=== PATIENT | male | born 1975 | race Caucasian/White ===

== ENCOUNTER → 2017-02-09 | Outpatient (REF) | payer OTHER, MEDICAID ==
[2017-02-09 18:45] LABS: ALBUMIN 3.9 GM/DL (3.2-5.2); ALBUMIN/GLOBULIN RATIO 1.3 (1.00-1.93); BILIRUBIN,DIRECT 0.1 MG/DL (0.0-0.2); BILIRUBIN,TOTAL 0.4 MG/DL (0.2-1.0); TOTAL PROTEIN 6.9 GM/DL (6.4-8.2)
== END ==
LOC: M SFHCPLAZ 16:20
PROVIDERS: ATTEND Family Medicine
DX: R10.11 Right upper quadrant pain (principal)

== ENCOUNTER 2017-02-19 22:44 | Emergency (ER) | payer OTHER, MEDICAID ==
[~2017-02-19] VITALS: Ht 182.9 cm; Wt 117.0 kg
[2017-02-19] MEDS ORDERED: SIMV10TA2 PO (22:54)
[2017-02-19] MEDS ORDERED: CYCL10TA PO (22:55)
[2017-02-19] MEDS ORDERED: ASPI81TA85 PO (22:55)
[2017-02-19 23:30] LABS: BASO # 0.1 K/mm3 (0.0-0.2); EOS # 0.3 K/mm3 (0.0-0.50); EOS % 4.9 % (0.0-3.0); LARGE UNSTAINED CELL # 0.1 K/mm3 (0.0-0.4); LARGE UNSTAINED CELL % 1.8 % (0.0-4.0); LYMPH # 1.7 K/mm3 (1.5-4.5); LYMPH % 27.4 % (24.0-44.0); MEAN CORPUSCULAR HEMOGLOBIN 31.6 pg (27.0-33.0); MEAN CORPUSCULAR HGB CONC 33.6 g/dl (32.0-36.5); MEAN CORPUSCULAR VOLUME 93.9 fl (80.0-96.0); MONO # 0.4 K/mm3 (0.0-0.8); MONO % 6.1 % (0.0-5.0); NEUTROPHILS # 3.4 K/mm3 (1.8-7.7); NEUTROPHILS % 58.7 % (36.0-66.0); PLATELET COUNT, AUTOMATED 158 k/mm3 (150-450); RED CELL DISTRIBUTION WIDTH 12.8 % (11.5-14.5); WHITE BLOOD COUNT 5.8 K/mm3 (4.0-10.0)
[2017-02-19] MEDS ORDERED: ASPIRIN 325 MG TAB PO ONE (23:30)
[2017-02-19] MEDS ORDERED: MORPHINE 4 MG/ML 1ML SYRINGE IV ONE (23:30)
[2017-02-19 23:38] LABS: INR 0.9
[2017-02-19 23:56] LABS: ANION GAP 6 MEQ/L (8-16); BLOOD UREA NITROGEN 16 MG/DL (7-18); CALCIUM LEVEL 8.7 MG/DL (8.5-10.1); CARBON DIOXIDE LEVEL 28 MEQ/L (21-32); CHLORIDE LEVEL 106 MEQ/L (98-107); CREATININE FOR GFR 1.02 MG/DL (0.70-1.30); GLOMERULAR FILTRATION RATE > 60.0 (>60); GLUCOSE, FASTING 111 MG/DL (70-105); POTASSIUM SERUM 3.6 MEQ/L (3.5-5.1); SODIUM LEVEL 140 MEQ/L (136-145)
[2017-02-20] MEDS ORDERED: NS 1,000 ML IV ONE (00:15)
[2017-02-20] MEDS ORDERED: ISOVUE-370 76% 100ML VIAL (Q9967) As Ordered ONE (00:16)
--- NOTE | 2017-02-20 00:40 | REPUSA ---
CT angiogram of the chest Clinical statement: Chest pain. Technique: Multiple axial CT images were obtained from the thoracic inlet through the upper abdomen a fter a bolus administration of nonionic intravenous contrast. Coronal and sagittal reconstructions we re also obtained. No comparison is available. Findings: The pulmonary arteries are well-opacified with contrast, with no intraluminal filling defec ts to suggest embolism. The thoracic aorta is unremarkable. Thyroid gland is within normal limits. Th ere is no thoracic lymphadenopathy. There are no pericardial or pleural effusions. The lungs are penny r. Limited imaging of the upper abdomen demonstrates a small amount of ascites around gallbladder. Th ere are no suspicious osseous lesions. Impression: 1. Unremarkable CT examination of the chest. No evidence of pulmonary embolism. 2. Small amount of pericholecystic free fluid, of uncertain clinical significance. If there is furthe r clinical concern, ultrasound of the gallbladder could be performed.
[2017-02-20 01:08] LABS: ALBUMIN 3.5 GM/DL (3.2-5.2); ALKALINE PHOSPHATASE 99 U/L (45-117); ALT/SGPT 56 U/L (12-78); AMYLASE 57 U/L (25-115); AST/SGOT 41 U/L (15-37); BILIRUBIN,DIRECT < 0.1 MG/DL (0.0-0.2); BILIRUBIN,TOTAL 0.4 MG/DL (0.2-1.0)
--- NOTE | 2017-02-20 01:50 | REPUSA ---
Clinical history: Right upper quadrant pain. Findings: The pancreas is limited in visualization secondary to overlying bowel gas, but appears mathew sly unremarkable. The liver demonstrates increased echotexture and echogenicity, with no mass lesions . The gallbladder is partially contracted, limiting evaluation. There is irregular wall thickening in the fundus of the gallbladder, which could just be benign Pharyngian cap, or a true abnormality. No pericholecystic fluid is noted. The common bile duct measures 4 mm and is within normal limits. The r ight kidney measures 12.5 x 5.8 x 5.3 cm and is unremarkable. There is no ascites. Impression: 1. Slight irregularity in the fundus of the gallbladder as described. This could be a benign finding because of the contracted nature of the gallbladder. No gallstones are identified. A repeat study fol lowing normal fasting procedure would be recommended for further evaluation. 2. No evidence of biliary ductal dilatation. 3. Fatty infiltration of the liver.
[2017-02-20] MEDS ORDERED: MORPHINE 4 MG/ML 1ML SYRINGE IV ONE (02:45)
[2017-02-20 04:41] VITALS: BP 125/78
[2017-02-20] MEDS ORDERED: ASPI1TAB PO (06:01)
[2017-02-20] MEDS ORDERED: KETO10TAB PO (06:02)
--- NOTE | 2017-02-20 08:13 | REP ---
Portable chest, 02/19/2017, 11:45 p.m.: Comparison is 12/17/2010. The lung verma are clear. The cardiac size is normal. The matt, mediastinum, and bony thorax are unremarkable. Impression: Negative portable chest. Signed by Harpal Min MD 02/20/2017 08:04 A
--- NOTE | 2017-02-21 21:26 | ECGEPIP ---
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
== END 2017-02-20 06:22 | disposition home or self-care (01) ==
LOC: M ED 22:44
DX: R07.89 Other chest pain (principal); E78.5 Hyperlipidemia, unspecified; F17.200 Nicotine dependence, unspecified, uncomplicated; Z79.899 Other long term (current) drug therapy; Z79.82 Long term (current) use of aspirin
CPT/HCPCS: 71010; 71275; 76705; 80048; 80076; 82150; 82550; 82553; 83690; 85025; 85610; 85730; 93005; 96374; 96376; 99285; Q9967

== ENCOUNTER → 2017-07-17 | Outpatient (REF) | payer OTHER, MEDICAID ==
[~2017-07-17] MED LIST: ASPI1TAB PO; ASPI81TA85 PO; CYCL10TA PO; KETO10TAB PO; SIMV10TA2 PO
[2017-07-17 11:20] LABS: ALBUMIN 3.5 GM/DL (3.2-5.2); ALBUMIN/GLOBULIN RATIO 1.17 (1.00-1.93); ALKALINE PHOSPHATASE 71 U/L (45-117); ALT/SGPT 55 U/L (12-78); ANION GAP 9 MEQ/L (8-16); AST/SGOT 33 U/L (15-37); BILIRUBIN,TOTAL 0.5 MG/DL (0.2-1.0); BLOOD UREA NITROGEN 16 MG/DL (7-18); CALCIUM LEVEL 8.3 MG/DL (8.5-10.1); CARBON DIOXIDE LEVEL 26 MEQ/L (21-32); CHLORIDE LEVEL 107 MEQ/L (98-107); CHOLESTEROL LEVEL 169 MG/DL (<200); CREATININE FOR GFR 1.08 MG/DL (0.70-1.30); FREE T4 0.78 NG/DL (0.76-1.46); GLOMERULAR FILTRATION RATE > 60.0 (>60); GLUCOSE, FASTING 107 MG/DL (70-105); POTASSIUM SERUM 4.3 MEQ/L (3.5-5.1); SODIUM LEVEL 142 MEQ/L (136-145); TOTAL PROTEIN 6.5 GM/DL (6.4-8.2); TRIGLYCERIDES LEVEL 130 MG/DL (<150)
== END ==
LOC: M SFHCPLAZ 08:35
PROVIDERS: ATTEND Family Medicine
DX: E78.2 Mixed hyperlipidemia (principal)

== ENCOUNTER 2018-10-21 08:25 | Emergency (ER) | payer OTHER, MEDICAID ==
[2018-10-21 09:03] LABS: APPEARANCE, URINE CLEAR (CLEAR); BACTERIA, URINE AUTO NEGATIVE (NEGATIVE); BILIRUBIN, URINE AUTO NEGATIVE (NEGATIVE); BLOOD, URINE BLOOD NEGATIVE (NEGATIVE); COLOR, URINE YELLOW (YELLOW); GLUCOSE, URINE (UA) AUTO NEGATIVE (NEGATIVE); KETONE, URINE AUTO TRACE mg/dL (NEGATIVE); LEUKOCYTE ESTERASE, URINE AUTO NEGATIVE (NEGATIVE); MUCUS, URINE SMALL (NEGATIVE); NITRITE, URINE AUTO NEGATIVE (NEGATIVE); PROTEIN, URINE AUTO NEGATIVE (NEGATIVE); RBC, URINE AUTO 3 /HPF (0-3); SQUAMOUS EPITHELIAL CELL UR AU 0 /HPF (0-6); WBC, URINE AUTO 1 /HPF (0-3)
[2018-10-21] MEDS: ONDANSETRON 4MG/2ML VIAL (J2405) IV ×2 (09:16)
[2018-10-21] MEDS: MORPHINE 4 MG/ML 1ML VIAL/SYRINGE (J2270) IV ×2 (09:16)
[2018-10-21] MEDS: NS 1,000 ML IV ×2 (09:16)
[2018-10-21 09:42] LABS: BASO # 0.1 10^3/uL (0.0-0.2); BASO % 1.3 % (0.0-1.0); EOS # 0.1 10^3/uL (0.0-0.50); EOS % 1.5 % (0.0-3.0); HEMATOCRIT 48.2 % (42.0-52.0); HEMOGLOBIN 16.2 g/dl (13.5-17.5); IMMATURE GRANULOCYTE % 0.2 % (0-3.0); LYMPH # 1.5 10^3/uL (1.5-4.5); LYMPH % 27.9 % (24.0-44.0); MEAN CORPUSCULAR HEMOGLOBIN 32.1 pg (27.0-33.0); MEAN CORPUSCULAR HGB CONC 33.6 g/dl (32.0-36.5); MEAN CORPUSCULAR VOLUME 95.4 fl (80.0-96.0); MONO # 0.3 10^3/uL (0.0-0.8); MONO % 6.2 % (0.0-5.0); NEUTROPHILS # 3.5 10^3/uL (1.8-7.7); NEUTROPHILS % 62.9 % (36.0-66.0); PLATELET COUNT, AUTOMATED 171 10^3/uL (150-450); RED BLOOD COUNT 5.05 10^6/uL (4.30-6.10); RED CELL DISTRIBUTION WIDTH 12.8 % (11.5-14.5); WHITE BLOOD COUNT 5.5 10^3/uL (4.0-10.0)
[2018-10-21 10:10] LABS: ALBUMIN 3.4 GM/DL (3.2-5.2); ALBUMIN/GLOBULIN RATIO 1.17 (1.00-1.93); ALKALINE PHOSPHATASE 74 U/L (45-117); ALT/SGPT 56 U/L (12-78); AMYLASE 66 U/L (25-115); ANION GAP 8 MEQ/L (8-16); AST/SGOT 32 U/L (7-37); BILIRUBIN,DIRECT < 0.1 MG/DL (0.0-0.2); BILIRUBIN,TOTAL 0.4 MG/DL (0.2-1.0); BLOOD UREA NITROGEN 12 MG/DL (7-18); CALCIUM LEVEL 7.8 MG/DL (8.5-10.1); CARBON DIOXIDE LEVEL 25 MEQ/L (21-32); CHLORIDE LEVEL 108 MEQ/L (98-107); CREATININE FOR GFR 0.94 MG/DL (0.70-1.30); GLOMERULAR FILTRATION RATE > 60.0 (>60); GLUCOSE, FASTING 96 MG/DL (70-100); LIPASE 378 U/L (73-393); POTASSIUM SERUM 4.8 MEQ/L (3.5-5.1); SODIUM LEVEL 141 MEQ/L (136-145); TOTAL PROTEIN 6.3 GM/DL (6.4-8.2)
[2018-10-21] MEDS ORDERED: ISOVUE-370 76% 100ML VIAL (Q9967) As Ordered ×2 (10:34)
== END 2018-10-21 11:38 | disposition home or self-care (01) ==
LOC: M ED 08:25
DX: K80.70 Calculus of gallbladder and bile duct without cholecystitis without obstruction (principal); Z79.899 Other long term (current) drug therapy; F17.210 Nicotine dependence, cigarettes, uncomplicated
CPT/HCPCS: J2270

== ENCOUNTER 2018-12-24 13:09 | Day surgery (SDC) | payer OTHER ==
[~2018-12-24] VITALS: Ht 182.9 cm; Wt 132.0 kg
[~2018-12-24 13:09] MED LIST changes: +CLOP75TA2; +KEFL500C17 PO; +LR 1,000 ML IV ONE; +NORCOTAB PO; +OMEP40CA2 PO; +SIMV20TA2; +TYLE500T78 PO; +ZOFR4TAB14 PO
[2018-12-24] MEDS ORDERED: PROPOFOL 200 MG/20 ML VIAL As Ordered ONE (17:05)
[2018-12-24] MEDS ORDERED: ROCURONIUM BROMIDE 50 MG/5 ML VIAL As Ordered ONE (17:05)
[2018-12-24] MEDS ORDERED: LIDOCAINE 2% INJ 100 MG/5 ML SDV (FOR ANES.) As Ordered ONE (17:06)
[2018-12-24] MEDS ORDERED: MIDAZOLAM INJ 2 MG/2 ML VIAL (J2250) As Ordered ONE (17:06)
[2018-12-24] MEDS ORDERED: fentaNYL 100 MCG/2 ML INJECTION (J3010) As Ordered ONE (17:06)
[2018-12-24] MEDS ORDERED: BUPIVACAINE HCL 0.25% 30 ML VIAL As Ordered ONE (17:18)
[2018-12-24] MEDS ORDERED: ONDANSETRON 4MG/2ML VIAL (J2405) As Ordered ONE (17:19)
[2018-12-24] MEDS ORDERED: KETOROLAC 60 MG/2 ML VIAL (J1885) As Ordered ONE (17:19)
[2018-12-24 19:26] VITALS: BP 130/69
== END 2018-12-24 19:30 | disposition home or self-care (01) ==
LOC: M SDC 13:09
PROVIDERS: ATTEND Surgery
DX: K80.20 Calculus of gallbladder without cholecystitis without obstruction (principal); Z53.09 Procedure and treatment not carried out because of other contraindication; I48.91 Unspecified atrial fibrillation
CPT/HCPCS: J1885; J2250; J2405; J3010

== ENCOUNTER 2019-02-14 16:38 | Emergency (ER) | payer OTHER ==
[~2019-02-14] VITALS: Ht 182.9 cm; Wt 136.8 kg
[~2019-02-14 16:38] MED LIST changes: -ASPI1TAB PO; +ASPI81TA26 PO; +HYDR-3715 PO; -LR 1,000 ML IV ONE; -NORCOTAB PO
[2019-02-14] MEDS ORDERED: IBUP-1022 PO (17:48)
[2019-02-14] MEDS ORDERED: SOMA350T PO (17:48)
[2019-02-14 18:04] VITALS: BP 137/86
== END 2019-02-14 18:01 | disposition home or self-care (01) ==
LOC: M ED 16:38
DX: S39.012A Strain of muscle, fascia and tendon of lower back, initial encounter (principal); M54.41 Lumbago with sciatica, right side; M54.42 Lumbago with sciatica, left side; X58.XXXA Exposure to other specified factors, initial encounter; Y92.099 Unspecified place in other non-institutional residence as the place of occurrence of the external cause; Y93.9 Activity, unspecified; Y99.9 Unspecified external cause status; I10 Essential (primary) hypertension; Z72.0 Tobacco use; Z79.82 Long term (current) use of aspirin; Z79.899 Other long term (current) drug therapy

== ENCOUNTER → 2019-02-17 | Outpatient (CLI) | payer OTHER, MEDICAID ==
[~2019-02-17] MED LIST changes: +IBUP-1022 PO; +SOMA350T PO
--- NOTE | 2019-02-17 15:11 | REP ---
LUMBAR SPINE SERIES: Five views. HISTORY: Low back pain with sciatica, left and right side. Comparison: Lumbar spine radiographs are from January 29, 2011. FINDINGS: Lumbar vertebral body heights are preserved. Alignment is normal. Pedicles and posterior elements are intact. There is no evidence of spondylolysis or spondylolisthesis. There are degenerative disc changes including narrowing and anterior osteophyte formation at L3-4, L4-5 and to a lesser extent L5-S1. There is mild facet joint hypertrophy bilaterally L4-5 and L5-S1. These are more pronounced than on the 2011 study. No fracture is seen. Sacrum SI joints are intact. Psoas margins are symmetric. 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 Electronically Signed by Ganga Bhakta MD 02/17/2019 03:16 P
== END ==
LOC: M ADAMS 14:35
PROVIDERS: ATTEND Physician Assistant Medical
DX: M51.36 Other intervertebral disc degeneration, lumbar region (principal); M51.37 Other intervertebral disc degeneration, lumbosacral region

== ENCOUNTER → 2019-02-22 | Outpatient (CLI) | payer OTHER ==
--- NOTE | 2019-02-22 18:19 | REPVR ---
EXAM: MR Lumbar Spine Without Contrast. EXAM DATE/TIME: 02/22/2019 3:16 PM CLINICAL HISTORY: 44 years old, male; Signs and symptoms; Lumbago; Additional info: Lumbago with sciatia TECHNIQUE: Imaging protocol: Multiplanar magnetic resonance images of the lumbar spine without intravenous contrast. COMPARISON: DX SPINE LS COMPLETE 02/17/2019 2:31 PM FINDINGS: Vertebrae: Normal alignment. L1-L2: No significant disc disease. No stenosis. L2-L3: No significant disc disease. No stenosis. L3-L4: There is a moderate central spinal stenosis at L3-4 secondary to diffuse annular bulging, central disc protrusion , thickened ligamentum flavum and facet joint arthropathy. Crowding of nerve roots most likely related to the disc herniation. Arachnoiditis not excluded. Moderate bilateral foraminal narrowing. L4-L5: There is a moderate central spinal stenosis at L4-5 secondary to diffuse annular bulging, right paracentral and foraminal disc herniation, thickened ligamentum flavum and facet joint arthropathy. Crowding of the nerve is likely related to the disc herniation with arachnoiditis not excluded. Moderate bilateral foraminal narrowing. L5-S1: There is a mild central spinal stenosis at L5-S1 secondary to diffuse annular bulging, right posterior and left foraminal disc herniation, thickened ligamentum flavum and facet joint arthropathy. Bilateral facet arthropathy. Mild bilateral foraminal narrowing. Spinal cord: Normal signal. No cord compression. Sacrum/coccyx: Probable transitional S1 vertebral segment at the caudal end of the spine. The segment will be referred to as S1 for the purposes of this report. Soft tissues: Unremarkable. IMPRESSION: 1. There is a moderate central spinal stenosis at L3-4 secondary to diffuse annular bulging, central disc protrusion , thickened ligamentum flavum and facet joint arthropathy. 2. There is a moderate central spinal stenosis at L4-5 secondary to diffuse annular bulging, right paracentral and foraminal disc herniation, thickened ligamentum flavum and facet joint arthropathy. 3. There is a mild central spinal stenosis at L5-S1 secondary to diffuse annular bulging, right posterior and left foraminal disc herniation, thickened ligamentum flavum and facet joint arthropathy. Bilateral facet arthropathy. 4. Nerve root crowding at L3-4 and L4-5 likely related to disc disease with arachnoiditis not excluded. Electronically signed by: Colin Soria On 02/22/2019 18:19:08 PM
== END ==
LOC: M RAD 15:02
PROVIDERS: ATTEND Physician Assistant Medical
DX: M48.061 Spinal stenosis, lumbar region without neurogenic claudication (principal); M47.816 Spondylosis without myelopathy or radiculopathy, lumbar region; M51.26 Other intervertebral disc displacement, lumbar region; M48.07 Spinal stenosis, lumbosacral region; M47.817 Spondylosis without myelopathy or radiculopathy, lumbosacral region; M51.27 Other intervertebral disc displacement, lumbosacral region

== ENCOUNTER 2019-03-19 08:12 | Emergency (ER) | payer OTHER ==
[~2019-03-19] VITALS: Ht 182.9 cm; Wt 137.3 kg
[2019-03-19] MEDS ORDERED: ECOT81TA5 PO (08:25)
[2019-03-19] MEDS ORDERED: ASPI81CH48 PO (08:25)
[2019-03-19] MEDS ORDERED: XARE20TA PO (08:25)
[2019-03-19] MEDS ORDERED: NITR0.4S14 SL (08:25)
[2019-03-19] MEDS ORDERED: GABA-843 (08:25)
[2019-03-19] MEDS ORDERED: CARI1TAB7 PO (08:25)
[2019-03-19] MEDS ORDERED: TIZA4TAB4 PO (08:25)
[2019-03-19 08:51] LABS: BASO # 0.1 10^3/uL (0.0-0.2); EOS # 0.2 10^3/uL (0.0-0.50); EOS % 3.3 % (0.0-3.0); HEMATOCRIT 48.9 % (42.0-52.0); HEMOGLOBIN 16.7 g/dl (13.5-17.5); LYMPH # 1.8 10^3/uL (1.5-4.5); LYMPH % 34.7 % (24.0-44.0); MEAN CORPUSCULAR HEMOGLOBIN 32.4 pg (27.0-33.0); MEAN CORPUSCULAR HGB CONC 34.2 g/dl (32.0-36.5); MEAN CORPUSCULAR VOLUME 94.8 fl (80.0-96.0); MONO # 0.5 10^3/uL (0.0-0.8); MONO % 8.8 % (0.0-5.0); NEUTROPHILS # 2.7 10^3/uL (1.8-7.7); PLATELET COUNT, AUTOMATED 131 10^3/uL (150-450); RED BLOOD COUNT 5.16 10^6/uL (4.30-6.10); WHITE BLOOD COUNT 5.1 10^3/uL (4.0-10.0)
[2019-03-19] MEDS ORDERED: PANTOPRAZOLE 40MG INJ (PROTONIX) (C9113) IV ONE (09:15)
[2019-03-19] MEDS ORDERED: ASPIRIN 81 MG CHEW TABLET PO ONE (09:15)
[2019-03-19 09:18] LABS: ALBUMIN 3.5 GM/DL (3.2-5.2); ALT/SGPT 60 U/L (12-78); BILIRUBIN,TOTAL 0.8 MG/DL (0.2-1.0); BLOOD UREA NITROGEN 11 MG/DL (7-18); CALCIUM LEVEL 8.8 MG/DL (8.5-10.1); CARBON DIOXIDE LEVEL 26 MEQ/L (21-32); CHLORIDE LEVEL 106 MEQ/L (98-107); CPK CREATINE PHOSPHOKINASE 115 U/L (39-308); CREATININE FOR GFR 1.04 MG/DL (0.70-1.30); GLOMERULAR FILTRATION RATE > 60.0 (>60); GLUCOSE, FASTING 102 MG/DL (70-100); LIPASE 100 U/L (73-393); POTASSIUM SERUM 4.1 MEQ/L (3.5-5.1); SODIUM LEVEL 137 MEQ/L (136-145); TOTAL PROTEIN 6.3 GM/DL (6.4-8.2); TROPONIN I < 0.02 NG/ML (< 0.10)
[2019-03-19 09:20] LABS: INR 1.39; PROTHROMBIN TIME 17.3 SECONDS (12.1-14.4)
--- NOTE | 2019-03-19 09:45 | REP ---
CHEST, SINGLE VIEW: COMPARISON: 02/19/2017. There is no evidence of acute infiltrate. No pleural effusion is seen. The heart is normal in size. The mediastinal silhouette is unremarkable. The visualized osseous structures are intact. IMPRESSION: No acute pulmonary disease. Electronically Signed by Harpal Wallace MD 03/21/2019 11:41 A
[2019-03-19] MEDS: IPRATROPIUM 0.5MG/ALBUTEROL 2.5MG INH SOL UD 3ML (DUONEB)(J7620) NEB SCH ×3 (10:10→10:40)
[2019-03-19] MEDS ORDERED: methylPREDNISolone INJ 40 MG/1 ML VIAL (J2920) IV ONE (13:15)
[2019-03-19 13:44] LABS: CPK CREATINE PHOSPHOKINASE 109 U/L (39-308); MB/CK RELATIVE INDEX 2.02 (< OR =4); TROPONIN I < 0.02 NG/ML (< 0.10)
[2019-03-19] MEDS ORDERED: PRED20TA PO (14:37)
[2019-03-19] MEDS ORDERED: VENTAER INH (14:38)
--- NOTE | 2019-03-19 14:56 | ECGEPIP ---
Stationary ECG Study 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
--- NOTE | 2019-03-19 15:03 | ECGEPIP ---
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
[2019-03-19 15:05] VITALS: BP 118/76
== END 2019-03-19 15:13 | disposition home or self-care (01) ==
LOC: M ED 08:12 → EDBD 08:12 → M ED 15:13
DX: J44.1 Chronic obstructive pulmonary disease with (acute) exacerbation (principal); R07.9 Chest pain, unspecified; I48.91 Unspecified atrial fibrillation; Z79.82 Long term (current) use of aspirin; Z79.899 Other long term (current) drug therapy
CPT/HCPCS: 36415; 71045; 80053; 82550; 82553; 83690; 84484; 85025; 85610; 93005; 93041; 94640; 94760; 96374; 96375; 99285; C9113; J2920

== ENCOUNTER 2019-07-01 06:02 | Day surgery (SDC) | payer OTHER ==
[~2019-07-01] VITALS: Ht 182.9 cm; Wt 148.3 kg
[~2019-07-01 06:02] MED LIST changes: +AMIO200T PO; +ASPI81CH48 PO; +CARI1TAB7 PO; +DICL1GEL3 TOP; +ECOT81TA5 PO; +FURO40TA2 PO; +GABA-843 PO; +LR 1,000 ML IV ONE; +METO25TA4 PO; +NITR0.4S14 SL; +OMEP1CAP73 PO; -OMEP40CA2 PO; +OMEP40CA97 PO; +PRED20TA PO; -SIMV10TA2 PO; +SIMV10TA21 PO; -SIMV20TA2; +SIMV20TA22; +TIZA4CAP6 PO; +TIZA4TAB4 PO; +VENTAER INH; +XARE20TA PO
[2019-07-01] MEDS ORDERED: ALBUTEROL SULFATE 2.5 MG/0.5 ML INH NEB SOLN As Ordered ONE (07:08)
[2019-07-01] MEDS ORDERED: ALBUTEROL SULFATE 2.5 MG/0.5 ML INH NEB SOLN INH ONE (07:15)
[2019-07-01] MEDS ORDERED: propofoL 200 MG/20 ML VIAL As Ordered ONE (07:45)
--- NOTE | 2019-07-01 07:57 | RO ---
DATE OF PROCEDURE: 07/01/2019 DIAGNOSIS: Atrial fibrillation. PROCEDURE: Cardioversion. POSTPROCEDURE DIAGNOSIS: Resumption of sinus mechanism. ANESTHESIA: Lani Vasquez MD BRIEF HISTORY: Mr. Langford is a 44-year-old man who has had persistent atrial fibrillation now for 6 months. Even though he is well rate control, he has low energy and overall feels much less energetic and tired all the time. Consequently, we decided to pursue DC cardioversion. He has been loaded with amiodarone and currently is already on maintenance dose of 200 mg a day. He has been chronically anticoagulated with Xarelto. The nature of the procedure, the indication, and potential outcomes, including the risk of stroke and inability to maintain sinus rhythm were discussed. He did sign appropriate consent on outpatient basis. I went over the consent with him again today. PROCEDURE NOTE: Procedure was performed in recovery room. The patient was brought in a fasting condition. Time out was taken. After IV was placed and all appropriate monitors were applied, he was cardioverted with initially 200 joules of energy applied in biphasic fashion in synchronized mode. Unfortunately, 200 joules of energy failed to cardiovert the patient and consequently I applied additional shock of 300 joules of energy that led to resumption of sinus rhythm without post conversion pause. At the time of my dictation, 12-lead ECG is pending. Otherwise, hemodynamically, the patient tolerated the procedure well. CONCLUSION: Successful cardioversion of atrial fibrillation into sinus rhythm. DISPOSITION: The patient will resume his preadmission medications. I will arrange for followup later this week. [facility]
[2019-07-01 08:15] VITALS: BP 131/85
--- NOTE | 2019-07-01 20:41 | ECGEPIP ---
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
--- NOTE | 2019-07-01 20:47 | ECGEPIP ---
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
[2019-09-29] MEDS ORDERED: TYLE650T35 PO (12:03)
[2019-09-29] MEDS ORDERED: LISI-542 PO (12:03)
[2019-09-29] MEDS ORDERED: ROSU20TA5 PO (12:03)
[2019-09-29] MEDS ORDERED: GABA-845 PO (12:03)
== END 2019-07-01 08:28 | disposition home or self-care (01) ==
LOC: M SDC 06:02
PROVIDERS: ATTEND Internal Medicine Cardiovascular Disease
DX: I48.1 Persistent atrial fibrillation (principal); I50.9 Heart failure, unspecified; E78.5 Hyperlipidemia, unspecified; J44.9 Chronic obstructive pulmonary disease, unspecified; K21.9 Gastro-esophageal reflux disease without esophagitis; G47.30 Sleep apnea, unspecified; F17.210 Nicotine dependence, cigarettes, uncomplicated; Z79.01 Long term (current) use of anticoagulants; Z79.899 Other long term (current) drug therapy; Z79.51 Long term (current) use of inhaled steroids

== ENCOUNTER → 2019-07-14 | Outpatient (REF) | payer OTHER ==
[~2019-07-14] MED LIST changes: -LR 1,000 ML IV ONE; -OMEP1CAP73 PO; +OMEP20CA4 PO; +OMEP40CA2 PO; -OMEP40CA97 PO; +SIMV10TA2 PO; -SIMV10TA21 PO; +SIMV20TA2; -SIMV20TA22
[2019-07-14 13:57] LABS: ALBUMIN 3.6 GM/DL (3.2-5.2); ALT/SGPT 137 U/L (12-78); BILIRUBIN,TOTAL 0.6 MG/DL (0.2-1.0); BLOOD UREA NITROGEN 12 MG/DL (7-18); CALCIUM LEVEL 9.2 MG/DL (8.5-10.1); CARBON DIOXIDE LEVEL 30 MEQ/L (21-32); CHLORIDE LEVEL 99 MEQ/L (98-107); CHOLESTEROL LEVEL 270 MG/DL (<200); CHOLESTEROL RISK RATIO 6.923 (<5); CREATININE FOR GFR 1.17 MG/DL (0.70-1.30); GLOMERULAR FILTRATION RATE > 60.0 (>60); GLUCOSE, FASTING 121 MG/DL (70-100); HDL CHOLESTEROL 39 MG/DL (>40); LDL CHOLESTEROL 183 MG/DL (<100); NON-HDL-C 231 MG/DL; POTASSIUM SERUM 4.4 MEQ/L (3.5-5.1); SODIUM LEVEL 138 MEQ/L (136-145); TOTAL PROTEIN 6.7 GM/DL (6.4-8.2); TRIGLYCERIDES LEVEL 242 MG/DL (<150)
[2019-07-14 14:35] LABS: HEMOGLOBIN A1c 6.2 %
== END ==
LOC: M SFHCADAM 09:37
PROVIDERS: ATTEND Family Medicine
DX: E78.2 Mixed hyperlipidemia (principal); R73.09 Other abnormal glucose

== ENCOUNTER → 2019-08-07 | Outpatient (CLI) | payer MEDICAID ==
--- NOTE | 2019-08-07 10:28 | PFTRPT ---
Height: 72.00 Inches Weight: 324.00 Lbs BSA: 2.62 Diagnosis: SHORTNESS OF BREATH AND WHEEZING DATE OF PROCEDURE: 08/07/2019 ORDERED BY: Velia Olivares Spirometry: Pre and post bronchodilator study of excellent technical quality. Forced vital capacity reduced. FEV1 generally in proportion. Obstructive index is, therefore, normal. Flow Volume Loop: Expiratory limb of the flow volume loop does suggest flow rate limitation, however. Favorable bronchodilator response is identified. Lung Volumes: Total lung capacity normal. Residual volume suggests concomitant air trapping. Diffusing Capacity: Diffusing capacity is normal and remains normal when corrected for alveolar volume. Hemoglobin: Hemoglobin acceptable at 15.4. Airway Mechanics: Airway resistance and conductance are normal. IMPRESSION: Reversible obstructive ventilatory impairment with underlying air trapping. Please correlate clinically. MTDD
== END ==
LOC: M CARPUL 09:47
PROVIDERS: ATTEND Physician Assistant
DX: R06.02 Shortness of breath (principal); F17.210 Nicotine dependence, cigarettes, uncomplicated

== ENCOUNTER → 2019-09-19 | Outpatient (CLI) | payer MEDICAID, OTHER ==
[~2019-09-19] MED LIST changes: -OMEP40CA2 PO; +OMEP40CA97 PO
--- NOTE | 2019-09-19 16:42 | REP ---
Four views chest: 09/19/2019. Indication: Cough. Comparison: 03/19/2019. Findings: The lungs are clear. There is no pleural effusion or pneumothorax. The cardiomediastinal silhouette is unremarkable. Impression: No acute cardiopulmonary process. Electronically Signed by Kristopher Reyes DO 09/19/2019 04:34 P
== END ==
LOC: M ADAMS 16:20
PROVIDERS: ATTEND Family Medicine
DX: R05 Cough (principal)

== ENCOUNTER 2019-10-13 07:38 | Day surgery (SDC) | payer OTHER ==
[~2019-10-13] VITALS: Ht 182.9 cm; Wt 154.7 kg
[~2019-10-13 07:38] MED LIST changes: +GABA-845 PO; +LISI-542 PO; +NS 1,000 ML IV ONE; +OMEP-172 PO; -OMEP20CA4 PO; +ROSU20TA5 PO; -SIMV10TA2 PO; +SIMV10TA21 PO; -SIMV20TA2; +SIMV20TA22; +TYLE650T35 PO
[2019-10-13] MEDS ORDERED: PROPOFOL 200 MG/20 ML VIAL As Ordered ONE (07:39)
[2019-10-13] MEDS ORDERED: LIDOCAINE 2% INJ 100 MG/5 ML SDV (FOR ANES.) As Ordered ONE (07:39)
[2019-10-13 08:55] VITALS: BP 127/64
--- NOTE | 2019-10-13 09:07 | ROOR ---
Patient Name: Efra Langford Procedure Date: 10/13/2019 8:30 AM Date of : 1975 Age: 44 Room: [facility] ED Gender: Male Note Status: Finalized Procedure: Colonoscopy Indications: Hematochezia Providers: Nik Chandler MD Referring MD: Eriberto Stroud MD Requesting Provider: Medicines: Monitored Anesthesia Care Complications: No immediate complications. Procedure: Pre-Anesthesia Assessment: - Prior to the procedure, a History and Physical was performed, and patient medications and allergies were reviewed. The patient is competent. The risks and benefits of the procedure and the sedation options and risks were discussed with the patient. All questions were answered and informed consent was obtained. Patient identification and proposed procedure were verified by the physician, the nurse and the anesthesiologist in the procedure room. Mental Status Examination: alert and oriented. Airway Examination: normal oropharyngeal airway and neck mobility. Respiratory Examination: clear to auscultation. CV Examination: normal. Prophylactic Antibiotics: The patient does not require prophylactic antibiotics. Prior Anticoagulants: The patient has taken no previous anticoagulant or antiplatelet agents. ASA Grade Assessment: II - A patient with mild systemic disease. After reviewing the risks and benefits, the patient was deemed in satisfactory condition to undergo the procedure. The anesthesia plan was to use monitored anesthesia care (MAC). Immediately prior to administration of medications, the patient was re-assessed for adequacy to receive sedatives. The heart rate, respiratory rate, oxygen saturations, blood pressure, adequacy of pulmonary ventilation, and response to care were monitored throughout the procedure. The physical status of the patient was re-assessed after the procedure. The Colonoscope was introduced through the anus and advanced to the terminal ileum, with identification of the appendiceal orifice and IC valve. The colonoscopy was performed without difficulty. The patient tolerated the procedure well. The quality of the bowel preparation was good. The terminal ileum, ileocecal valve, appendiceal orifice, and rectum were photographed. Scope insertion time was 3 minutes. Scope withdrawal time was 9 minutes. The total duration of the procedure was 12 minutes. Findings: The perianal and digital rectal examinations were normal. The terminal ileum appeared normal. Two sessile polyps were found in the rectum. The polyps were 4 to 6 mm in size. These polyps were removed with a cold biopsy forceps. Resection and retrieval were complete. Verification of patient identification for the specimen was done by the physician and nurse using the patient's name, date and medical record number. Estimated blood loss was minimal. Multiple small and large-mouthed diverticula were found from sigmoid to cecum. There was no evidence of diverticular bleeding. Non-bleeding external and internal hemorrhoids were found during retroflexion. The hemorrhoids were medium-sized. Impression: - The examined portion of the ileum was normal. - Two 4 to 6 mm polyps in the rectum, removed with a cold biopsy forceps. Resected and retrieved. - Moderate diverticulosis from sigmoid to cecum. There was no evidence of diverticular bleeding. - Non-bleeding external and internal hemorrhoids. Recommendation: - Patient has a contact number available for emergencies. The signs and symptoms of potential delayed complications were discussed with the patient. Return to normal activities tomorrow. Written discharge instructions were provided to the patient. - High fiber diet. - Continue present medications. - Use fiber, for example Citrucel, Fibercon, Konsyl or Metamucil. - Recommend hemorrhoid medication for 5 days. - Await pathology results. - Repeat colonoscopy in 5 years for surveillance based on pathology results. - Telephone GI clinic for pathology results in 2 weeks. - Return to primary care physician. Nik Chandler MD Nik Chandler MD 10/13/2019 9:06:35 AM Electronically signed by Nik Chandler MD Number of Addenda: 0 Note Initiated On: 10/13/2019 8:30 AM Estimated Blood Loss: Estimated blood loss was minimal.
== END 2019-10-13 09:34 | disposition home or self-care (01) ==
LOC: M OPP 07:38
PROVIDERS: ATTEND Internal Medicine Gastroenterology
DX: K64.8 Other hemorrhoids (principal); K62.1 Rectal polyp; K57.30 Diverticulosis of large intestine without perforation or abscess without bleeding; K92.1 Melena; I48.91 Unspecified atrial fibrillation; I50.9 Heart failure, unspecified; G47.30 Sleep apnea, unspecified; Z79.899 Other long term (current) drug therapy; F17.210 Nicotine dependence, cigarettes, uncomplicated

== ENCOUNTER → 2019-11-11 | Outpatient (REF) | payer OTHER ==
[~2019-11-11] MED LIST changes: -NS 1,000 ML IV ONE
== END ==
LOC: M SFHCADAM 11:33
PROVIDERS: ATTEND Family Medicine
DX: Z53.9 Procedure and treatment not carried out, unspecified reason (principal)

== ENCOUNTER → 2019-11-14 | Outpatient (REF) | payer OTHER ==
[2019-11-14 15:54] LABS: HEMATOCRIT 48.5 % (42.0-52.0); HEMOGLOBIN 15.6 g/dl (13.5-17.5); MEAN CORPUSCULAR HEMOGLOBIN 32.6 pg (27.0-33.0); MEAN CORPUSCULAR HGB CONC 32.2 g/dl (32.0-36.5); MEAN CORPUSCULAR VOLUME 101.3 fl (80.0-96.0); PLATELET COUNT, AUTOMATED 166 10^3/uL (150-450); RED BLOOD COUNT 4.79 10^6/uL (4.30-6.10); WHITE BLOOD COUNT 6.6 10^3/uL (4.0-10.0)
[2019-11-14 16:00] LABS: ALBUMIN 3.5 GM/DL (3.2-5.2); ALT/SGPT 110 U/L (12-78); BILIRUBIN,TOTAL 0.4 MG/DL (0.2-1.0); BLOOD UREA NITROGEN 17 MG/DL (7-18); CALCIUM LEVEL 8.8 MG/DL (8.5-10.1); CARBON DIOXIDE LEVEL 29 MEQ/L (21-32); CHLORIDE LEVEL 105 MEQ/L (98-107); CHOLESTEROL LEVEL 201 MG/DL (<200); CHOLESTEROL RISK RATIO 4.369 (<5); CREATININE FOR GFR 1.17 MG/DL (0.70-1.30); GLOMERULAR FILTRATION RATE > 60.0 (>60); GLUCOSE, FASTING 110 MG/DL (70-100); HDL CHOLESTEROL 46 MG/DL (>40); LDL CHOLESTEROL 127 MG/DL (<100); NON-HDL-C 155 MG/DL; POTASSIUM SERUM 5.1 MEQ/L (3.5-5.1); SODIUM LEVEL 140 MEQ/L (136-145); TOTAL PROTEIN 6.8 GM/DL (6.4-8.2); TRIGLYCERIDES LEVEL 138 MG/DL (<150)
[2019-11-14 16:24] LABS: HEMOGLOBIN A1c 5.9 %
== END ==
LOC: M SFHCADAM 11:34
PROVIDERS: ATTEND Family Medicine
DX: E78.2 Mixed hyperlipidemia (principal); R73.09 Other abnormal glucose; G47.33 Obstructive sleep apnea (adult) (pediatric)

== ENCOUNTER → 2020-03-12 | Outpatient (REF) | payer OTHER ==
[~2020-03-12] MED LIST changes: +CYCL-707 PO; -CYCL10TA PO; -OMEP-172 PO; +OMEP1CAP73 PO
== END ==
LOC: M LABDRWAD 16:52
PROVIDERS: ATTEND Physical Medicine & Rehabilitation
DX: M48.07 Spinal stenosis, lumbosacral region (principal)

== ENCOUNTER → 2020-05-06 | Outpatient (REF) | payer OTHER ==
[2020-05-06 12:47] LABS: HEMATOCRIT 47.9 % (42.0-52.0); HEMOGLOBIN 15.7 g/dl (13.5-17.5); MEAN CORPUSCULAR HEMOGLOBIN 31.8 pg (27.0-33.0); MEAN CORPUSCULAR HGB CONC 32.8 g/dl (32.0-36.5); MEAN CORPUSCULAR VOLUME 97.2 fl (80.0-96.0); PLATELET COUNT, AUTOMATED 150 10^3/uL (150-450); RED BLOOD COUNT 4.93 10^6/uL (4.30-6.10); WHITE BLOOD COUNT 6.6 10^3/uL (4.0-10.0)
[2020-05-06 13:09] LABS: ALBUMIN 3.5 GM/DL (3.2-5.2); ALT/SGPT 70 U/L (12-78); BILIRUBIN,TOTAL 0.7 MG/DL (0.2-1.0); BLOOD UREA NITROGEN 15 MG/DL (7-18); CALCIUM LEVEL 9.1 MG/DL (8.5-10.1); CARBON DIOXIDE LEVEL 28 MEQ/L (21-32); CHLORIDE LEVEL 104 MEQ/L (98-107); CHOLESTEROL LEVEL 186 MG/DL (<200); CHOLESTEROL RISK RATIO 5.636 (<5); CREATININE FOR GFR 1.03 MG/DL (0.70-1.30); FREE T4 1.18 NG/DL (0.76-1.46); GLOMERULAR FILTRATION RATE > 60.0 (>60); GLUCOSE, FASTING 133 MG/DL (70-100); HDL CHOLESTEROL 33 MG/DL (>40); LDL CHOLESTEROL 108 MG/DL (<100); NON-HDL-C 153 MG/DL; SODIUM LEVEL 136 MEQ/L (136-145); TOTAL PROTEIN 6.7 GM/DL (6.4-8.2); TRIGLYCERIDES LEVEL 225 MG/DL (<150)
[2020-05-06 13:27] LABS: HEMOGLOBIN A1c 6.8 %
== END ==
LOC: M SFHCADAM 09:29
PROVIDERS: ATTEND Family Medicine
DX: J44.9 Chronic obstructive pulmonary disease, unspecified (principal); I48.20 Chronic atrial fibrillation, unspecified; E78.2 Mixed hyperlipidemia; R73.09 Other abnormal glucose

== ENCOUNTER 2020-07-18 23:34 | Emergency (ER) | payer OTHER ==
[~2020-07-18] VITALS: Ht 182.9 cm; Wt 154.6 kg
[~2020-07-18 23:34] MED LIST changes: +ACET650T61 PO; -AMIO200T PO; +AMIO200T3 PO; -ASPI81TA85 PO; +ASPI81TA86 PO; -TYLE650T35 PO
[2020-07-19] MEDS ORDERED: TOPR50TA PO (00:57)
[2020-07-19] MEDS ORDERED: LYRI75CA PO (00:57)
[2020-07-19 00:58] LABS: HEMATOCRIT 48.3 % (42.0-52.0); HEMOGLOBIN 16.5 g/dl (13.5-17.5); MEAN CORPUSCULAR HEMOGLOBIN 32.8 pg (27.0-33.0); MEAN CORPUSCULAR HGB CONC 34.2 g/dl (32.0-36.5); PLATELET COUNT, AUTOMATED 187 10^3/uL (150-450); RED BLOOD COUNT 5.03 10^6/uL (4.30-6.10); WHITE BLOOD COUNT 9.3 10^3/uL (4.0-10.0)
[2020-07-19 01:00] LABS: AMPHETAMINES LEVEL URINE NEGATIVE (NEGATIVE); BARBITURATES URINE NEGATIVE (NEGATIVE); BENZODIAZEPINES URINE NEGATIVE (NEGATIVE); CANNABINOIDS URINE NEGATIVE (NEGATIVE); COCAINE METABOLITE URINE NEGATIVE (NEGATIVE); METHADONE URINE NEGATIVE (NEGATIVE); OPIATES URINE NEGATIVE (NEGATIVE); PHENCYCLIDINE URINE NEGATIVE (NEGATIVE)
[2020-07-19 01:11] LABS: ALBUMIN 3.8 GM/DL (3.2-5.2); ALT/SGPT 114 U/L (12-78); BILIRUBIN,DIRECT 0.2 MG/DL (0.0-0.2); BILIRUBIN,TOTAL 0.6 MG/DL (0.2-1.0); BLOOD UREA NITROGEN 8 MG/DL (7-18); CALCIUM LEVEL 8.8 MG/DL (8.5-10.1); CARBON DIOXIDE LEVEL 25 MEQ/L (21-32); CHLORIDE LEVEL 104 MEQ/L (98-107); CREATININE FOR GFR 0.93 MG/DL (0.70-1.30); ETHYL ALCOHOL (ETHANOL) 0.226 % (0.000-0.010); GLOMERULAR FILTRATION RATE > 60.0 (>60); GLUCOSE, FASTING 181 MG/DL (70-100); POTASSIUM SERUM 3.3 MEQ/L (3.5-5.1); SALICYLATE LEVEL 4.5 MG/DL (5.0-30.0); SODIUM LEVEL 139 MEQ/L (136-145); TOTAL PROTEIN 7.5 GM/DL (6.4-8.2)
[2020-07-19 01:12] LABS: ACETAMINOPHEN LEVEL < 2.0 UG/ML (10.0-30.0)
[2020-07-19] MEDS ORDERED: INCR1INH INH (02:14)
[2020-07-19] MEDS ORDERED: ARNU1INH INH (02:14)
[2020-07-19] MEDS ORDERED: ACET1TAB16 PO (02:18)
[2020-07-19] MEDS ORDERED: IPRATROPIUM 0.5MG/ALBUTEROL 2.5MG INH SOL UD 3ML (DUONEB) NEB ONE (02:45)
[2020-07-19 09:21] VITALS: BP 119/77
== END 2020-07-19 09:23 | disposition home or self-care (01) ==
LOC: M ED 23:34
DX: F10.129 Alcohol abuse with intoxication, unspecified (principal); J44.9 Chronic obstructive pulmonary disease, unspecified; Z91.5 Personal history of self-harm; F32.9 Major depressive disorder, single episode, unspecified; F17.200 Nicotine dependence, unspecified, uncomplicated; E66.01 Morbid (severe) obesity due to excess calories; Z79.01 Long term (current) use of anticoagulants; Z79.899 Other long term (current) drug therapy; Z88.8 Allergy status to other drugs, medicaments and biological substances
CPT/HCPCS: 80048; 80076; 80307; 84443; 85027; 94640; 99284; G0480

== ENCOUNTER → 2020-07-21 | Outpatient (CLI) | payer OTHER ==
[~2020-07-21] MED LIST changes: +ACET1TAB16 PO; +ARNU1INH INH; +INCR1INH INH; +LOVA40TA PO; +LYRI75CA PO; +PREG150C PO; +TOPR50TA PO; +VIAG100T PO
--- NOTE | 2020-08-17 13:06 | REP ---
CHEST X-RAY CLINICAL: Mild asthma. TECHNIQUE: PA and lateral. COMPARISON: 09/19/2019. FINDINGS: Mediastinum and cardiac silhouette are normal. Lung verma without focal consolidation, effusion, or pneumothorax. Mildly coarsened markings consistent with the given history of asthma and chronic reactive airway disease. Skeletal structures are intact. IMPRESSION: Findings consistent with chronic reactive airway disease. No focal consolidation or effusion MTDD
== END ==
LOC: M ADAMS 14:40
PROVIDERS: ATTEND Nurse Practitioner Family
DX: J45.30 Mild persistent asthma, uncomplicated (principal)

== ENCOUNTER 2020-08-01 23:41 | Emergency (ER) | payer OTHER ==
[~2020-08-01] VITALS: Ht 182.9 cm; Wt 155.9 kg
[~2020-08-01 23:41] MED LIST changes: -LOVA40TA PO; -PREG150C PO; -VIAG100T PO
[2020-08-02 00:19] LABS: HEMATOCRIT 46.7 % (42.0-52.0); HEMOGLOBIN 16.2 g/dl (13.5-17.5); MEAN CORPUSCULAR HEMOGLOBIN 33.1 pg (27.0-33.0); MEAN CORPUSCULAR HGB CONC 34.7 g/dl (32.0-36.5); MEAN CORPUSCULAR VOLUME 95.5 fl (80.0-96.0); PLATELET COUNT, AUTOMATED 163 10^3/uL (150-450); RED BLOOD COUNT 4.89 10^6/uL (4.30-6.10); WHITE BLOOD COUNT 8.1 10^3/uL (4.0-10.0)
[2020-08-02] MEDS ORDERED: LOVA40TA PO (00:21)
[2020-08-02 00:47] LABS: AMPHETAMINES LEVEL URINE NEGATIVE (NEGATIVE); BARBITURATES URINE NEGATIVE (NEGATIVE); BENZODIAZEPINES URINE NEGATIVE (NEGATIVE); CANNABINOIDS URINE NEGATIVE (NEGATIVE); COCAINE METABOLITE URINE NEGATIVE (NEGATIVE); METHADONE URINE NEGATIVE (NEGATIVE); OPIATES URINE NEGATIVE (NEGATIVE); PHENCYCLIDINE URINE NEGATIVE (NEGATIVE)
[2020-08-02 00:53] LABS: ACETAMINOPHEN LEVEL < 2.0 UG/ML (10.0-30.0); ALBUMIN 3.6 GM/DL (3.2-5.2); ALT/SGPT 110 U/L (12-78); BILIRUBIN,DIRECT 0.2 MG/DL (0.0-0.2); BILIRUBIN,TOTAL 0.4 MG/DL (0.2-1.0); BLOOD UREA NITROGEN 11 MG/DL (7-18); CALCIUM LEVEL 8.8 MG/DL (8.5-10.1); CARBON DIOXIDE LEVEL 26 MEQ/L (21-32); CHLORIDE LEVEL 103 MEQ/L (98-107); ETHYL ALCOHOL (ETHANOL) 0.175 % (0.000-0.010); GLOMERULAR FILTRATION RATE > 60.0 (>60); GLUCOSE, FASTING 242 MG/DL (70-100); POTASSIUM SERUM 3.1 MEQ/L (3.5-5.1); SALICYLATE LEVEL 3.4 MG/DL (5.0-30.0); SODIUM LEVEL 137 MEQ/L (136-145); TOTAL PROTEIN 7.3 GM/DL (6.4-8.2)
[2020-08-02] MEDS ORDERED: POTASSIUM CHLORIDE 10 MEQ SR TABLET PO ONE (01:30)
[2020-08-02 01:48] LABS: MAGNESIUM LEVEL 2.1 MG/DL (1.8-2.4)
[2020-08-02] MEDS ORDERED: VIAG100T PO (08:24)
[2020-08-02] MEDS ORDERED: VENTAER INH (08:24)
[2020-08-02] MEDS ORDERED: PREG150C PO (08:24)
[2020-08-02] MEDS ORDERED: PREGABALIN 75 MG CAP(LYRICA) PO SCH (09:00)
[2020-08-02] MEDS ORDERED: lisinopriL 5 MG TAB PO SCH (09:00)
[2020-08-02] MEDS ORDERED: FUROSEMIDE 40 MG TAB PO SCH (09:00)
[2020-08-02] MEDS ORDERED: OMEPRAZOLE 20 MG CAP PO SCH (09:00)
[2020-08-02 09:52] VITALS: BP 151/96
[2020-08-02] MEDS ORDERED: RIVAROXABAN 20 MG TAB (XARELTO) PO SCH ×2 (18:00→21:00)
[2020-08-02 19:29] VITALS: BP 165/88
[2020-08-02] MEDS ORDERED: METOPROLOL SUCC (TopROL XL) 50MG **XL** TAB PO SCH (21:00)
--- NOTE | 2020-08-06 10:45 | ECGEPIP ---
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
== END 2020-08-02 19:34 ==
LOC: M ED 23:41
DX: R45.851 Suicidal ideations (principal); F10.129 Alcohol abuse with intoxication, unspecified; I48.91 Unspecified atrial fibrillation; J44.9 Chronic obstructive pulmonary disease, unspecified; G47.33 Obstructive sleep apnea (adult) (pediatric); I10 Essential (primary) hypertension; F33.9 Major depressive disorder, recurrent, unspecified; F17.200 Nicotine dependence, unspecified, uncomplicated; Z79.51 Long term (current) use of inhaled steroids; Z79.899 Other long term (current) drug therapy
CPT/HCPCS: 36415; 80048; 80076; 80307; 83735; 84443; 85027; 93005; 99285; G0480

== ENCOUNTER → 2020-08-25 | Outpatient (REF) | payer OTHER ==
[~2020-08-25] MED LIST changes: +LOVA40TA PO; +PREG150C PO; +VIAG100T PO
[2020-08-25 13:32] LABS: BLOOD UREA NITROGEN 12 MG/DL (7-18); CALCIUM LEVEL 9.3 MG/DL (8.5-10.1); CARBON DIOXIDE LEVEL 31 MEQ/L (21-32); CHLORIDE LEVEL 101 MEQ/L (98-107); GLOMERULAR FILTRATION RATE > 60.0 (>60); GLUCOSE, FASTING 137 MG/DL (70-100); MAGNESIUM LEVEL 2.1 MG/DL (1.8-2.4); POTASSIUM SERUM 4.4 MEQ/L (3.5-5.1); SODIUM LEVEL 135 MEQ/L (136-145)
== END ==
LOC: M SFHCADAM 11:11
PROVIDERS: ATTEND Family Medicine
DX: E87.6 Hypokalemia (principal)

== ENCOUNTER → 2020-09-03 | Outpatient (REF) | payer OTHER | LOC: M LABDRWAD 17:45 | PROVIDERS: ATTEND Nurse Practitioner Psychiatric/Mental Health | DX: F32.9 Major depressive disorder, single episode, unspecified (principal) ==

== ENCOUNTER 2020-10-21 02:31 | Emergency (ER) | payer OTHER ==
[~2020-10-21] VITALS: Ht 175.3 cm; Wt 156.8 kg
[2020-10-21 03:01] LABS: HEMATOCRIT 48.4 % (42.0-52.0); MEAN CORPUSCULAR HEMOGLOBIN 31.3 pg (27.0-33.0); MEAN CORPUSCULAR HGB CONC 33.1 g/dl (32.0-36.5); MEAN CORPUSCULAR VOLUME 94.7 fl (80.0-96.0); PLATELET COUNT, AUTOMATED 162 10^3/uL (150-450); RED BLOOD COUNT 5.11 10^6/uL (4.30-6.10)
[2020-10-21] MEDS ORDERED: FLUT1INH3 PO (03:09)
[2020-10-21] MEDS ORDERED: B-1100TA2 PO (03:09)
[2020-10-21] MEDS ORDERED: VITA50005 PO (03:09)
[2020-10-21] MEDS ORDERED: VENL150C43 PO (03:09)
[2020-10-21] MEDS ORDERED: NORT10CA2 PO (03:09)
[2020-10-21 03:12] LABS: INR 1.71; PROTHROMBIN TIME 20.4 SECONDS (12.5-14.3)
[2020-10-21] MEDS ORDERED: METOPROLOL TART 50 MG TAB PO ONE (03:15)
[2020-10-21 03:25] LABS: ATYPICAL LYMPH 5 % (0-5); EOSINOPHILS 1 % (0-3); LYMPHOCYTES 20 % (16-44); MONOCYTES 4 % (0-5); NEUTROPHILS 70 % (28-66); PLATELET ESTIMATE NORMAL (NORMAL)
[2020-10-21 03:30] LABS: ALBUMIN 3.4 GM/DL (3.2-5.2); ALT/SGPT 82 U/L (12-78); BILIRUBIN,DIRECT 0.1 MG/DL (0.0-0.2); BILIRUBIN,TOTAL 0.3 MG/DL (0.2-1.0); CK-MB VALUE MASS 3.8 NG/ML (<3.6); CPK CREATINE PHOSPHOKINASE 488 U/L (39-308); LIPASE 126 U/L (73-393); MB/CK RELATIVE INDEX 0.78 (< OR =4); TROPONIN I < 0.02 NG/ML (< 0.10)
[2020-10-21] MEDS ORDERED: ASPIRIN 81 MG CHEW TABLET PO ONE (03:30)
[2020-10-21] MEDS: METOPROLOL 5 MG/5 ML VIAL IV SCH ×3 (03:36→03:52)
--- NOTE | 2020-10-21 03:45 | REPVR ---
PROCEDURE INFORMATION: Exam: XR Chest, 1 View Exam date and time: 10/21/2020 3:06 AM Age: 45 years old Clinical indication: Chest pain TECHNIQUE: Imaging protocol: XR of the chest Views: 1 view. COMPARISON: DX CHEST 2 VIEW 2020-07-21 14:26 FINDINGS: Lungs: Unremarkable. No consolidation. Pleural space: Unremarkable. No pleural effusion. No pneumothorax. Heart/Mediastinum: Unremarkable. No cardiomegaly. Bones/joints: Unremarkable. IMPRESSION: No acute findings. Electronically signed by: Earnest Monson On 10/21/2020 03:46:07 AM
[2020-10-21 03:52] VITALS: BP 119/67
[2020-10-21 03:52] LABS: ETHYL ALCOHOL (ETHANOL) < 0.003 % (0.000-0.010)
[2020-10-21] MEDS ORDERED: METAL LOCK LOOP XX ONE (04:43)
[2020-10-21 05:00] VITALS: BP 120/73
--- NOTE | 2020-10-23 06:30 | ECGEPIP ---
[facility] - ED Test Date: 2020-10-21 Pat Name: RICARDO TELLEZ Department: Room: - Gender: Male Credit Resolution Representative: kk : 1975 Requested By: MILLIE Diana Order Number: [id number] Reading MD: Miguel Yanez Measurements Intervals [place] Rate: 108 P: [place]: 0 QRS: -25 QRSD: 84 T: 47 QT: 307 QTc: 412 Interpretive Statements ATRIAL FIBRILLATION WITH RAPID VENTRICULAR RESPONSE BORDERLINE LEFT AXIS DEVIATION ABNORMAL RHYTHM ECG NONSPECIFIC ST T WAVE CHANGES DELAYED R WAVE PROGRESSION CW 08/02/20 RATE INCREASED RHYTHM CHANGE NONSPECIFIC ST T WAVE CHANGES Electronically Signed on 10-23-2020 6:30:14 EST by Miguel Yanez
== END 2020-10-21 05:38 | disposition home or self-care (01) ==
LOC: M ED 02:31
DX: I48.91 Unspecified atrial fibrillation (principal); R06.02 Shortness of breath; I10 Essential (primary) hypertension; J44.9 Chronic obstructive pulmonary disease, unspecified; F17.210 Nicotine dependence, cigarettes, uncomplicated; Z88.8 Allergy status to other drugs, medicaments and biological substances; Z79.899 Other long term (current) drug therapy; Z79.01 Long term (current) use of anticoagulants; Z79.51 Long term (current) use of inhaled steroids
CPT/HCPCS: 71045; 80047; 80076; 82550; 82553; 83690; 85025; 85610; 93005; 93041; 94760; 96374; 99285; G0480

== ENCOUNTER → 2020-11-03 | Outpatient (REF) | payer OTHER ==
[~2020-11-03] MED LIST changes: +B-1100TA2 PO; +FLUT1INH3 PO; +NORT10CA2 PO; +VENL150C43 PO; +VITA50005 PO
[2020-11-03 13:11] LABS: HEMOGLOBIN 15.1 g/dl (13.5-17.5); MEAN CORPUSCULAR HGB CONC 32.1 g/dl (32.0-36.5); MEAN CORPUSCULAR VOLUME 96.5 fl (80.0-96.0); PLATELET COUNT, AUTOMATED 150 10^3/uL (150-450); RED BLOOD COUNT 4.87 10^6/uL (4.30-6.10)
[2020-11-03 13:45] LABS: HEMOGLOBIN A1c 7.8 %
[2020-11-03 13:46] LABS: ALBUMIN 3.4 GM/DL (3.2-5.2); ALT/SGPT 83 U/L (12-78); BILIRUBIN,TOTAL 0.6 MG/DL (0.2-1.0); BLOOD UREA NITROGEN 13 MG/DL (7-18); CALCIUM LEVEL 8.8 MG/DL (8.5-10.1); CARBON DIOXIDE LEVEL 29 MEQ/L (21-32); CHLORIDE LEVEL 100 MEQ/L (98-107); CHOLESTEROL LEVEL 167 MG/DL (<200); CHOLESTEROL RISK RATIO 4.638 (<5); CREATININE FOR GFR 1.11 MG/DL (0.70-1.30); FREE T4 1.01 NG/DL (0.76-1.46); GLOMERULAR FILTRATION RATE > 60.0 (>60); GLUCOSE, FASTING 188 MG/DL (70-100); HDL CHOLESTEROL 36 MG/DL (>40); LDL CHOLESTEROL 79 MG/DL (<100); NON-HDL-C 131 MG/DL; POTASSIUM SERUM 4.2 MEQ/L (3.5-5.1); SODIUM LEVEL 135 MEQ/L (136-145); TOTAL PROTEIN 6.7 GM/DL (6.4-8.2); TRIGLYCERIDES LEVEL 258 MG/DL (<150)
== END ==
LOC: M SFHCADAM 10:47
PROVIDERS: ATTEND Family Medicine
DX: F32.9 Major depressive disorder, single episode, unspecified (principal); E87.6 Hypokalemia; R73.09 Other abnormal glucose; K76.0 Fatty (change of) liver, not elsewhere classified; E78.2 Mixed hyperlipidemia

== ENCOUNTER → 2020-12-22 | Outpatient (REF) | payer OTHER ==
[~2020-12-22] MED LIST changes: +GABA-282 PO; -GABA-843 PO
[2020-12-22 17:15] LABS: PLATELET COUNT, AUTOMATED 156 10^3/uL (150-450)
[2020-12-22 17:27] LABS: INR 1.07; PROTHROMBIN TIME 14.1 SECONDS (12.5-14.3)
[2020-12-22 17:28] LABS: PARTIAL THROMBOPLASTIN TIME 30.4 SECONDS (24.2-38.5)
== END ==
LOC: M LABDRWAD 16:47
PROVIDERS: ATTEND Physician Assistant
DX: M51.37 Other intervertebral disc degeneration, lumbosacral region (principal)

== ENCOUNTER → 2020-12-31 | Outpatient (CLI) | payer SELFPAY ==
[~2020-12-31] MED LIST changes: -LISI-542 PO; +LISI-898 PO
== END ==
LOC: M LABSMTC 14:06
PROVIDERS: ATTEND Pediatrics
DX: Z20.822 Contact with and (suspected) exposure to COVID-19 (principal)

== ENCOUNTER 2021-01-16 15:49 | Inpatient (IN) | payer OTHER, SELFPAY ==
[~2021-01-16] VITALS: Ht 182.9 cm; Wt 156.0 kg
[2021-01-16] MEDS ORDERED: OMEP-218 PO (16:02)
[2021-01-16] MEDS ORDERED: TRAZ1TAB14 PO (16:02)
[2021-01-16] MEDS ORDERED: ACET300T52 PO (16:02)
[2021-01-16] MEDS ORDERED: ELIQ5TAB PO (16:02)
[2021-01-16] MEDS ORDERED: VENL75CA47 (16:02)
[2021-01-16] MEDS ORDERED: MORPHINE 4 MG/ML 1ML VIAL/SYRINGE (J2270) IV ONE (16:55)
[2021-01-16] MEDS ORDERED: ceFAZolin SOD 2 GM in IV 1 EA IV ONE (17:00)
[2021-01-16 17:01] LABS: HEMATOCRIT 48.1 % (42.0-52.0); HEMOGLOBIN 15.9 g/dl (13.5-17.5); MEAN CORPUSCULAR HEMOGLOBIN 31.2 pg (27.0-33.0); MEAN CORPUSCULAR HGB CONC 33.1 g/dl (32.0-36.5); MEAN CORPUSCULAR VOLUME 94.3 fl (80.0-96.0); PLATELET COUNT, AUTOMATED 149 10^3/uL (150-450); WHITE BLOOD COUNT 7.7 10^3/uL (4.0-10.0)
[2021-01-16] MEDS ORDERED: ISOVUE-370 76% 100ML VIAL As Ordered ONE (17:05)
[2021-01-16 17:20] LABS: ALBUMIN 3.5 GM/DL (3.2-5.2); BILIRUBIN,DIRECT 0.2 MG/DL (0.0-0.2); BILIRUBIN,TOTAL 0.5 MG/DL (0.2-1.0); C REACTIVE PROTEIN QUANTITATIV 2.25 MG/DL (0.00-0.30); TOTAL PROTEIN 7.1 GM/DL (6.4-8.2)
[2021-01-16] MEDS ORDERED: NS 500 ML IV ONE (17:25)
[2021-01-16 17:27] LABS: INR 1.18; PROTHROMBIN TIME 15.3 SECONDS (12.5-14.3)
[2021-01-16 17:28] LABS: PARTIAL THROMBOPLASTIN TIME 32.4 SECONDS (24.2-38.5)
--- NOTE | 2021-01-16 17:29 | REPVR ---
PROCEDURE INFORMATION: Exam: CT Maxillofacial With Contrast Exam date and time: 01/16/2021 5:11 PM Age: 45 years old Clinical indication: Mass, lump, or swelling; Scalp; Additional info: Facial swelling TECHNIQUE: Imaging protocol: Computed tomography images of the face with intravenous contrast. Radiation optimization: All CT scans at this facility use at least one of these dose optimization techniques: automated exposure control; mA and/or kV adjustment per patient size (includes targeted exams where dose is matched to clinical indication); or iterative reconstruction. Contrast material: ISOVUE 370; Contrast volume: 75 ml; Contrast route: INTRAVENOUS (IV); COMPARISON: No relevant prior studies available. FINDINGS: Orbital cavity: Orbits are normal. Globes are unremarkable. Bones/joints: No acute fracture. Paranasal sinuses: Normal. No air-fluid levels. Soft tissues: Unremarkable. IMPRESSION: No acute findings. Electronically signed by: Abad Lambert On 01/16/2021 17:29:33 PM
--- NOTE | 2021-01-16 17:30 | REPVR ---
PROCEDURE INFORMATION: Exam: CT Neck With Contrast Exam date and time: 01/16/2021 5:11 PM Age: 45 years old Clinical indication: Mass, lump, or swelling in neck TECHNIQUE: Imaging protocol: Computed tomography images of the neck with intravenous contrast. Radiation optimization: All CT scans at this facility use at least one of these dose optimization techniques: automated exposure control; mA and/or kV adjustment per patient size (includes targeted exams where dose is matched to clinical indication); or iterative reconstruction. Contrast material: ISOVUE 370; Contrast volume: 75 ml; Contrast route: INTRAVENOUS (IV); COMPARISON: No relevant prior studies available. FINDINGS: Paranasal sinuses: Mucosal thickening of bilateral ethmoid sinuses and right maxillary sinus. Nasopharynx: Unremarkable. Oropharynx: Unremarkable. No significant tonsillar enlargement. Hypopharynx: Unremarkable. Larynx: Unremarkable. Normal epiglottis. Retropharyngeal space: Unremarkable. Submandibular/Parotid glands: Normal. Glands are normal in size. Thyroid: Normal. No enlarged or calcified nodules. Lymph nodes: Unremarkable. No lymphadenopathy. Trachea: Visualized trachea is unremarkable. Lungs: Unremarkable as visualized. Bones/joints: Unremarkable. No acute fracture. Soft tissues: Unremarkable. No significant soft tissue swelling. IMPRESSION: No acute abnormality. Electronically signed by: Abad Lambert On 01/16/2021 17:30:53 PM
[2021-01-16 17:49] LABS: RSV AMPLIFICATION NEGATIVE (NEGATIVE)
[2021-01-16 17:53] LABS: ATYPICAL LYMPH 9 % (0-5); BASOPHILS 1 % (0-1); EOSINOPHILS 1 % (0-3); LYMPHOCYTES 23 % (16-44); MONOCYTES 3 % (0-5); NEUTROPHILS 61 % (28-66); PLATELET ESTIMATE DECREASED (NORMAL)
--- NOTE | 2021-01-16 18:21 | REP ---
INDICATION: cough for longer than week COMPARISON: 10/21/2020. TECHNIQUE: PA/Lateral FINDINGS: Lungs: Clear, no infiltrate. Heart: Normal in size. Mediastinum: Mediastinal silhouette unremarkable. Pleural angles: Unremarkable.. Bones and soft tissues: Unremarkable. IMPRESSION: No acute pulmonary disease. <Electronically signed by Harpal Wallace > 01/16/21 [id number]
[2021-01-16] MEDS ORDERED: DOXY100C37 PO (18:33)
[2021-01-16] MEDS ORDERED: FOLI1TAB11 PO (18:33)
[2021-01-16] MEDS ORDERED: LISI10TA22 PO (18:33)
[2021-01-16] MEDS ORDERED: VENL150C43 PO (18:33)
[2021-01-16] MEDS ORDERED: ACETAMINOPHEN TAB 650MG DOSE (2X325MG) PO PRN (20:10)
[2021-01-16] MEDS ORDERED: METAL LOCK LOOP XX ONE (20:18)
[2021-01-16] MEDS ORDERED: MORPHINE 4 MG/ML 1ML VIAL/SYRINGE (J2270) IV PRN (20:55)
[2021-01-16] MEDS ORDERED: carisoprodoL 350 MG TAB PO PRN (20:55)
[2021-01-16] MEDS ORDERED: VANCOMYCIN HCL 1,000 MG, VIAL MATE ADAPTER 1 EACH in NS 250 ML IV ONE (21:15)
[2021-01-16 21:59] VITALS: BP 144/90
[2021-01-16] MEDS: SIMVASTATIN 40 MG TAB PO SCH (22:44)
[2021-01-16] MEDS: METOPROLOL SUCC (TopROL XL) 50MG **XL** TAB PO SCH (22:45)
[2021-01-16] MEDS: APIXABAN 5 MG TAB (ELIQUIS) PO SCH (22:45)
[2021-01-16] MEDS: traZODone 50 MG TAB PO SCH (22:46)
[2021-01-17] MEDS: VANCOMYCIN HCL 1,000 MG, VIAL MATE ADAPTER 1 EACH in NS 250 ML IV SCH ×3 (00:25→16:22)
[2021-01-17] MEDS: VANCOMYCIN HCL 500 MG in D5W MINI-BAG PLUS 100 ML IV SCH ×3 (01:50→17:29)
[2021-01-17] MEDS: ceFAZolin SOD 2 GM in IV 1 EA IV SCH ×3 (03:08→19:30)
[2021-01-17 06:00] VITALS: BP 111/73
[2021-01-17 06:21] LABS: HEMATOCRIT 46.5 % (42.0-52.0); HEMOGLOBIN 15.1 g/dl (13.5-17.5); MEAN CORPUSCULAR HEMOGLOBIN 31.1 pg (27.0-33.0); MEAN CORPUSCULAR HGB CONC 32.5 g/dl (32.0-36.5); MEAN CORPUSCULAR VOLUME 95.7 fl (80.0-96.0); PLATELET COUNT, AUTOMATED 145 10^3/uL (150-450); RED BLOOD COUNT 4.86 10^6/uL (4.30-6.10); WHITE BLOOD COUNT 7.8 10^3/uL (4.0-10.0)
[2021-01-17 06:44] LABS: HEMOGLOBIN A1c 8.7 %
[2021-01-17 06:50] LABS: ALBUMIN 3.1 GM/DL (3.2-5.2); ALT/SGPT 61 U/L (12-78); BILIRUBIN,TOTAL 0.5 MG/DL (0.2-1.0); BLOOD UREA NITROGEN 11 MG/DL (7-18); CALCIUM LEVEL 8.4 MG/DL (8.5-10.1); CARBON DIOXIDE LEVEL 29 MEQ/L (21-32); CHLORIDE LEVEL 99 MEQ/L (98-107); CREATININE FOR GFR 1.06 MG/DL (0.70-1.30); GLOMERULAR FILTRATION RATE > 60.0 (>60); GLUCOSE, FASTING 253 MG/DL (70-100); POTASSIUM SERUM 3.9 MEQ/L (3.5-5.1); SODIUM LEVEL 135 MEQ/L (136-145); TOTAL PROTEIN 6.3 GM/DL (6.4-8.2)
[2021-01-17] MEDS: FLUTICASONE PROP 0.05% NASAL SPRAY 16 GM (FLONASE) NARES SCH (08:45)
[2021-01-17] MEDS: THIAMINE 100 MG TAB PO SCH (08:46)
[2021-01-17] MEDS: APIXABAN 5 MG TAB (ELIQUIS) PO SCH ×2 (08:46→20:52)
[2021-01-17] MEDS: FOLIC ACID 1 MG TAB PO SCH (08:46)
[2021-01-17] MEDS: OMEPRAZOLE 20 MG CAP PO SCH (08:46)
[2021-01-17] MEDS: FUROSEMIDE 40 MG TAB PO SCH (08:46)
[2021-01-17] MEDS: VENLAFAXINE **XR** 75MG CAPSULE PO SCH (08:46)
--- NOTE | 2021-01-17 09:57 | HPE ---
HISTORY AND PHYSICAL DATE OF ADMISSION: 01/16/2021 CHIEF COMPLAINT: Ingrown hair, infection on scalp. PRIMARY CARE PROVIDER: Dr. Eriberto Stroud RESIDENTIAL THERAPIST: Dr. Pepper Esposito HISTORY OF PRESENT ILLNESS: This is a 45-year-old male who states he had like a small pimple or ingrown hair on his scalp. His significant other tried to pop it and put peroxide on it. It seemed to get worse, more reddened, tender and swollen. He went to the urgent care last . He was placed on doxycycline. She has tried to express it and it has just gotten more red, more sore, more tender and painful, and today the redness and swelling have spread down posterior behind his ear and a large and swollen occipital lymph node on the left and the redness had gone into his face. He came to the emergency room. Upon arrival, temperature was 97, pulse 87, respirations 18, blood pressure 153/80, pulse ox was 100% on room air. LABORATORY STUDIES: White count was 7.7, hemoglobin 15.9, hematocrit 48.1, platelets were 149. PT was 15.3, INR was 1.18, PTT was 32.4. Lactic acid was 1.8. Total bilirubin 0.5, direct bilirubin 0.2, AST was 42, ALT was 70, alkaline phosphatase 121. C-reactive protein was 2.25. Non-fasting glucose 197. Sodium 134, potassium 3.9, chloride 95, CO2 was 29. A swab was negative for respiratory syncytial virus (RSV), influenza A, influenza B and SARS-COVID. The patient had a maxillofacial CT with contrast. There were no acute findings. A neck CT was done with contrast and showed mucosal thickening of bilateral ethmoid sinuses and right maxillary sinus; no acute abnormality. In the emergency room, patient received 500 mL of normal saline, 2 grams of cefazolin IV, and 4 mg of morphine for the pain with relief. Assessment was done and patient will be admitted for cellulitis of the scalp, face and head having failed outpatient p.o. treatment with doxycycline. He will be admitted inpatient status to the hospitalist. ALLERGIES: DULOXETINE. SOCIAL HISTORY: Lives with his significant other and his 16-year-old son. ETOH: He sates he used to drink daily, now he has cut back; 6-12 beers a few times a week. Smokes one pack of cigarettes per day. Recreational drug use: None. PAST MEDICAL HISTORY: 1. Degenerative disk disease, herniated disk; ambulates with a cane. 2. Atrial fibrillation: He has had cardioversion and is back in atrial fibrillation. 3. Hypertension. 4. Hypercholesterolemia. 5. Chronic obstructive pulmonary disease (COPD); seems pulmonary. 6. Obstructive sleep apnea; wears CPAP. 7. Depression. 8. Gastroesophageal reflux disease (GERD). PAST SURGICAL HISTORY: 1. Appendectomy. 2. Left inguinal hernia repair. 3. He had a colonoscopy 09/2019 that showed hyperplastic polyps. FAMILY HISTORY: Father of a myocardial infarction ([place]) in his 50s. He had a history of obstructive sleep apnea, chronic obstructive pulmonary disease (COPD) and congestive heart failure (CHF). Mother had cancer of the lung; she was a smoker. He has a brother with obstructive sleep apnea. HOME MEDICATIONS: - He was on doxycycline 100 mg p.o. twice a day - Vitamin D 50,000 units weekly - Nortriptyline 10 mg p.o. nightly p.r.n. for sleep - Thiamine 100 mg p.o. daily - Tylenol with codeine one p.o. every 4 hours p.r.n. for pain - Fluticasone/salmeterol 232-14 one puff p.o. twice a day - Pregabalin 150 mg p.o. twice a day - Viagra 100 mg p.o. p.r.n. erectile dysfunction - Incruse Ellipta 62.5 mcg one puff inhalation daily - Albuterol HFA two puffs every 4 hours p.r.n. shortness of breath or wheeze - Eliquis 5 mg p.o. twice a day - Soma 350 mg p.o. twice a day p.r.n. for pain - Folic acid 1 mg p.o. daily - Lasix 40 mg p.o. daily - Lisinopril 10 mg p.o. daily - Lovastatin 40 mg p.o. nightly - Metoprolol succinate 50 mg p.o. nightly - Omeprazole 20 mg p.o. daily - Trazodone 150 mg p.o. nightly - Venlafaxine HCL 150 mg p.o. daily REVIEW OF SYSTEMS: Complains of pain in the head and behind the ear down the neck. No blurred or double vision. No fever, no chills, no tinnitus. No hoarseness or difficulty swallowing. No lightheadedness, no vertigo. CARDIOVASCULAR: No complaints of chest pain, shortness of breath, palpitations, or edema. States he does have irregular heartbeat, history of atrial fibrillation. States his skip pitman was sending him to [place] for a PET scan to follow up on a pulmonary nodule and fluid in his heart or chest. No complaints of increased shortness of breath or edema. RESPIRATORY: He has postnasal drip, clear. Obstructive sleep apnea on CPAP. No hemoptysis, no orthopnea, no wheeze. GASTROINTESTINAL: No nausea, vomiting, or diarrhea. No hematochezia, no melena. No complaints of abdominal pain. GENITOURINARY: No hematuria, dysuria, frequency. MUSCULOSKELETAL: History of degenerative disk disease, bulging disk of the lumbar spine. No joint redness or swelling. ENDOCRINE: No polyuria, polydipsia or polyphagia. HEMATOLOGICAL: Platelets are slightly low, otherwise no previous history of anemia. NEUROLOGICAL: No paresthesias, paralysis. No history of seizures. PSYCHOLOGICAL: He has history of depression; has been hospitalized in mental health units for it. No current symptoms of suicidal ideation. PHYSICAL EXAMINATION: Bgbip-gprwx-lpyd-old obese male. Weight 156.7 kg. Height 72 inches. BMI 46.9. Blood pressure 150/80, pulse 88, respirations 18, O2 sat 100% on room air. Patient is alert and oriented times 3. HEENT: Pupils equal and react to light; extraocular movements are intact. Cornea and sclerae clear. Conjunctivae normal. No facial asymmetry. Left occipitoparietal approximately the size of a 50 cent piece, slightly reddened, slightly indurated area with a glove parts inspector redness that goes down posterior behind his ear and down to his posterior neck where there is a large, palpable, tender occipital lymph node and then around under his ear to his face and cheek. The face is symmetrical but the left cheek is reddened. Both exterior ears are non-reddened bilaterally. No external otitis noted. Pharynx, tongue, gums are pink and moist. Tongue was midline. NECK: Supple. Left posterior lymphadenopathy. No thyromegaly; no goiter. Carotids 2+ without bruits. CHEST: Decreased breath sounds; no wheeze or retraction. HEART: Irregular. ABDOMEN: Benign. Bowel sounds positive. GENITOURINARY/RECTAL: None done. EXTREMITIES: No cyanosis, clubbing or edema. Peripheral pulses equal and palpable bilaterally. SKIN: Warm and dry. IMPRESSION/PLAN: The patient will be admitted to the hospitalist service for the treatment of scalp, head and facial cellulitis having failed outpatient treatment to the medical floor. With history of atrial fibrillation, we will do 48 hours of telemetry. 1. Cellulitis, face, scalp. Do warm moist heat, IV vancomycin to cover Methicillin-resistant staph aureus (MRSA). Continue with cefazolin 2 grams every 8 hours. Monitor site. May need incision and drainage (I and D) on the scalp. 2. Atrial fibrillation with history of cardioversion in the past, currently in atrial fibrillation. Monitor rate. 3. Hypertension. Continue antihypertensive. Blood pressure up slightly now. Monitor. May need to increase his lisinopril. 4. Obstructive sleep apnea. May wear own CPAP. 5. Hypercholesterolemia. Continue statin. 6. History of depression. Continue venlafaxine. 7. History of gastroesophageal reflux disease (GERD). Continue omeprazole. 8. History of degenerative disk disease. Patient ambulates with a cane. 9. Deep vein thrombosis (DVT) prophylaxis. Patient is on Eliquis 5 p.o. twice a day for the atrial fibrillation and that will be continued.
[2021-01-17] MEDS: ALBUTEROL 90 MCG/ACT 8GM HFA INHALER INH PRN ×2 (10:54→15:25)
--- NOTE | 2021-01-17 12:05 | REPVR ---
PROCEDURE INFORMATION: Exam: CT Head Without Contrast Exam date and time: 01/17/2021 11:10 AM Age: 45 years old Clinical indication: Other: Possible abscess of scalp TECHNIQUE: Imaging protocol: Computed tomography of the head without contrast. Radiation optimization: All CT scans at this facility use at least one of these dose optimization techniques: automated exposure control; mA and/or kV adjustment per patient size (includes targeted exams where dose is matched to clinical indication); or iterative reconstruction. COMPARISON: No relevant prior studies available. FINDINGS: Brain: Normal. No hemorrhage. Unremarkable white matter. No mass effect. Cerebral ventricles: No ventriculomegaly. Bones/joints: Unremarkable. No acute fracture. Paranasal sinuses: There is moderate ethmoid mucosal thickening. Mastoid air cells: Visualized mastoid air cells are well aerated. Soft tissues: There is left temporoparietal scalp swelling with a superimposed tiny collection within the overlying subcutaneous fat extending to the skin. This measures up to 6 mm in diameter. IMPRESSION: Diffuse left temporoparietal scalp swelling with an associated overlying tiny 6 mm collection within the subcutaneous fat extending to the skin, potentially abscess. Electronically signed by: Rohini Walton On 01/17/2021 12:06:16 PM
[2021-01-17 13:36] LABS: HIV 1&2 SCREEN CENTAUR NEGATIVE (NEGATIVE)
[2021-01-17 14:00] VITALS: BP 116/84
--- NOTE | 2021-01-17 15:07 | IPNPDOC ---
Text Note Date of Service The patient was seen on 01/17/21. NOTE Patient was seen and examined this morning with the residents. The patient sta willian that he feels slightly better. Denies any fever, any rigors, any chills Physical examination HEENT: Pupils equal and react to light; extraocular movements are intact. occipitoparietal approximately the size of a 50 cent piece, slightly reddened, slightly indurated area with a floor coverings installer redness that goes down posterior behind his ear and down to his posterior neck where there is a large, palpable, tender occipital lymph node and then around under his ear to his face and cheek. The face is symmetrical but the left cheek is reddened. No external otitis noted. Pharynx, tongue, gums are pink and moist. Tongue was midline. NECK: Supple. Left posterior lymphadenopathy. No thyromegaly; no goiter. Carotids 2+ without bruits. CHEST: Decreased breath sounds; no wheeze or retraction. HEART: Irregular. ABDOMEN: Benign. Bowel sounds positive. GENITOURINARY/RECTAL: None done. EXTREMITIES: No cyanosis, clubbing or edema. Peripheral pulses equal and palpable bilaterally. SKIN: Warm and dry. Labs reviewed Radiology reviewed: CT scan of the head shows that there is soft tissue swelling along with 6 mm fluid collection pointing towards an abscess. IMPRESSION/PLAN: The patient will be admitted to the hospitalist service for the treatment of scalp, head and facial cellulitis having failed outpatient treatment to the medical floor. With history of atrial fibrillation, we will do 48 hours of telemetry. 1. Cellulitis, face, scalp. CAT scan showing 6 mm fluid collection. This is too small and should be taken care of just with the antibiotics. In my opinion, no surgical intervention required. We will repeat the radiology in couple of days to see if it has resolved. Continue IV vancomycin to cover Methicillin-resistant staph aureus (MRSA). MRSA skin also has been ordered Continue with cefazolin 2 grams every 8 hours. 2. Atrial fibrillation with history of cardioversion in the past, currently in atrial fibrillation. Monitor rate.. He is rate controlled. He continues to be on Eliquis. 3. Hypertension. Continue antihypertensive. Blood pressure up slightly now. Monitor. May need to increase his lisinopril. 4. Obstructive sleep apnea. May wear own CPAP. 5. Hypercholesterolemia. Continue statin. 6. History of depression. Continue venlafaxine. 7. History of gastroesophageal reflux disease (GERD). Continue omeprazole. 8. History of degenerative disk disease. Patient ambulates with a cane. Deep vein thrombosis (DVT) prophylaxis. Patient is on Eliquis 5 p.o. twice a day for the atrial fibrillation and that will be continued. Disposition. Home likely within the next 48 hours. VS,Fishbone, I+O VS, Fishbone, I+O Laboratory Tests 01/16/21 16:30 01/17/21 05:26 Vital Signs Date Time Temp Pulse Resp B/P (MAP) Pulse Ox O2 Delivery O2 Flow Rate FiO2 01/17/21 14:00 97.7 82 20 116/84 (95) 94 01/17/21 06:00 Room Air I&O- Last 24 Hours up to 6 AM 01/17/21 06:00 Intake Total 1320 ml Output Total 150 ml Balance 1170 ml RONIT PEREZ MD Jan 17, 2021 15:07
--- NOTE | 2021-01-17 19:19 | ECGEPIP ---
[facility] Test Date: 2021-01-16 Pat Name: RICARDO TELLEZ Department: Room: [place] [address] Gender: Male Crane Hooker: colten : 1975 Requested By: Nataly Luu [facility] Order Number: [id number] Reading MD: Pepper Esposito Measurements Intervals [place] Rate: 82 P: NV: QRS: -21 QRSD: 86 T: 24 QT: 350 QTc: 408 Interpretive Statements ATRIAL FIBRILLATION SIMILAR TO 10/21/2020 Electronically Signed on 01-17-2021 19:19:46 EST by Pepper Esposito
[2021-01-17] MEDS: ADVAIR HFA 230/21MCG INHALER INH SCH (19:35)
[2021-01-17] MEDS: SIMVASTATIN 40 MG TAB PO SCH (20:52)
[2021-01-17] MEDS: traZODone 50 MG TAB PO SCH (20:52)
[2021-01-17] MEDS: METOPROLOL SUCC (TopROL XL) 50MG **XL** TAB PO SCH (20:52)
[2021-01-17 22:00] VITALS: BP 114/77
[2021-01-17] MEDS: TIOTROPIUM INHALER/CAPSULE (SPIRIVA) INH SCH (23:21)
[2021-01-18] VITALS (7 sets, daily range): BP systolic 106–135; BP diastolic 66–80
[2021-01-18] MEDS: VANCOMYCIN HCL 1,000 MG, VIAL MATE ADAPTER 1 EACH in NS 250 ML IV SCH ×2 (01:11→08:18)
[2021-01-18] MEDS: VANCOMYCIN HCL 500 MG in D5W MINI-BAG PLUS 100 ML IV SCH ×2 (02:37→08:19)
[2021-01-18] MEDS: ceFAZolin SOD 2 GM in IV 1 EA IV SCH ×3 (03:52→17:09)
[2021-01-18] MEDS ORDERED: LORazepam 2 MG TAB PO PRN (05:50)
[2021-01-18 06:06] LABS: HEMATOCRIT 44.8 % (42.0-52.0); HEMOGLOBIN 14.3 g/dl (13.5-17.5); MEAN CORPUSCULAR HEMOGLOBIN 30.6 pg (27.0-33.0); MEAN CORPUSCULAR HGB CONC 31.9 g/dl (32.0-36.5); MEAN CORPUSCULAR VOLUME 95.9 fl (80.0-96.0); PLATELET COUNT, AUTOMATED 124 10^3/uL (150-450); RED BLOOD COUNT 4.67 10^6/uL (4.30-6.10); WHITE BLOOD COUNT 6.2 10^3/uL (4.0-10.0)
[2021-01-18 06:40] LABS: ALBUMIN 2.8 GM/DL (3.2-5.2); ALT/SGPT 47 U/L (12-78); BILIRUBIN,TOTAL 0.5 MG/DL (0.2-1.0); BLOOD UREA NITROGEN 13 MG/DL (7-18); CALCIUM LEVEL 8.3 MG/DL (8.5-10.1); CARBON DIOXIDE LEVEL 27 MEQ/L (21-32); CHLORIDE LEVEL 104 MEQ/L (98-107); CREATININE FOR GFR 0.97 MG/DL (0.70-1.30); GLOMERULAR FILTRATION RATE > 60.0 (>60); GLUCOSE, FASTING 244 MG/DL (70-100); POTASSIUM SERUM 4.2 MEQ/L (3.5-5.1); SODIUM LEVEL 135 MEQ/L (136-145); TOTAL PROTEIN 5.8 GM/DL (6.4-8.2)
[2021-01-18] MEDS: ADVAIR HFA 230/21MCG INHALER INH SCH ×2 (07:31→20:07)
[2021-01-18] MEDS: TIOTROPIUM INHALER/CAPSULE (SPIRIVA) INH SCH (07:31)
[2021-01-18] MEDS: FLUTICASONE PROP 0.05% NASAL SPRAY 16 GM (FLONASE) NARES SCH (08:15)
[2021-01-18] MEDS: VENLAFAXINE **XR** 75MG CAPSULE PO SCH (08:16)
[2021-01-18] MEDS: APIXABAN 5 MG TAB (ELIQUIS) PO SCH ×2 (08:17→21:23)
[2021-01-18] MEDS: FOLIC ACID 1 MG TAB PO SCH (08:17)
[2021-01-18] MEDS: FUROSEMIDE 40 MG TAB PO SCH (08:17)
[2021-01-18] MEDS: OMEPRAZOLE 20 MG CAP PO SCH (08:17)
[2021-01-18] MEDS: THIAMINE 100 MG TAB PO SCH (08:17)
[2021-01-18] MEDS: MULTIVITAMINS/MINERALS THERAP 1 TAB PO SCH (08:17)
--- NOTE | 2021-01-18 11:31 | IPNPDOC ---
Text Note Date of Service The patient was seen on 01/18/21. NOTE Subjective: Patient was sitting upright in bed. Upon interview today. He expressed good appetite and was having a full meal. Patient is anticipating discharge soon. He states that the left side of his head feels a lot better and less irritating today. He denies any overnight events, but states that he was coughing all night. He reports that this happens when he is anxious. He attributes this restlessness to possibly tobacco or alcohol withdrawal. Nursing staff reports no overnight event. Objective: Physical examination HEENT: Occipitoparietal area exhibits an indurated mass approximately the size of a 2 $0.50 coins, laying [id number]. The area is still red, however, not as tense as yesterday. There is very slight erythema of the left cheek today. It has decreased from yesterday. His posterior neck exhibits a large, palpable, tender occipital lymph node. The face is symmetrical but the left cheek is slightly more erythematous than the right. No external otitis noted. Pharynx, tongue, gums are pink and moist. Tongue was midline. NECK: Supple. Left posterior lymphadenopathy. No thyromegaly; no goiter. Carotids 2+ without bruits. CHEST: Decreased breath sounds; no wheeze or retraction. HEART: Irregularly irregular rhythm, normal rate, no murmurs, rubs or gallops. ABDOMEN: Benign. Bowel sounds positive. GENITOURINARY/RECTAL: None done. EXTREMITIES: No cyanosis, clubbing or edema. Peripheral pulses equal and palpabl e bilaterally. SKIN: Warm and dry. Radiology reviewed: CT scan of the head shows that there is soft tissue swelling along with 6 mm fluid collection pointing towards an abscess. IMPRESSION/PLAN: The patient will be admitted to the hospitalist service for the treatment of scalp, head and facial cellulitis having failed outpatient treatment to the medical floor. With history of atrial fibrillation, and on 48 hour telemetry. # Cellulitis, face, scalp. - CAT scan shows 6 mm fluid collection which should be taken care of just with the antibiotics, due to the small volume. Therefore, no surgical intervention required. - Will repeat CT head tomorrow to see if it has resolved. - Discontinued IV vancomycin. Due to negative. MRSA screening. - Continue with cefazolin 2 grams every 8 hours. - Anticipating discharge tomorrow with oral Augmentin. # Atrial fibrillation with h/o cardioversion still in atrial fibrillation - Continue to monitor rate He is rate-controlled. -Holding parameters placed on Metoprolol, SBP<110 and HR<60 - Continue Eliquis. # Hypertension. -Continue antihypertensives, holding parameters placed for Furosemide and lisinopril: SBP<110, HR<60. # Alcohol dependence. Patient has been placed on CIWA protocol by the night team due to history of drinking 12 beers daily. Patient was having tremors, with CIWA score of 7, the highest it was today. Ordered 1 dose of 25 mg Librium. Patient refused because he stated that he was feeling well. Checked with nurse, who confirmed that CIWA score was 0 at 5:30PM 01/18/2021 # Obstructive sleep apnea. -May wear own CPAP. # Hypercholesterolemia. -Continue home medication: statin use. # History of depression. -Continue home dose venlafaxine. # History of gastroesophageal reflux disease (GERD). -Continue home dose omeprazole. # History of degenerative disk disease. - Patient ambulates with a cane. DVT prophylaxis: Patient is on Eliquis 5 p.o. twice a day for the atrial fibrillation and that will be continued. Disposition: Home likely within the next 48 hours. VS,Fishbone, I+O VS, Fishbone, I+O Laboratory Tests 01/18/21 05:53 Vital Signs Date Time Temp Pulse Resp B/P (MAP) Pulse Ox O2 Delivery O2 Flow Rate FiO2 01/18/21 10:51 76 115/66 01/18/21 06:00 95.5 18 96 NIPPV (BIPAP/CPAP) I&O- Last 24 Hours up to 6 AM 01/18/21 06:00 Intake Total 2770 ml Output Total 1225 ml Balance 1545 ml GME ATTESTATION GME ATTESTATION My faculty preceptor for this patient encounter was physically present during the encounter and was fully available. All aspects of the patient interview, examination, medical decision making process, and medical care plan development were reviewed and approved by the faculty preceptor. The faculty preceptor is aware and concurs with the plan as stated in the body of this note and will attest to such by his/her cosignature. Collin Sotelo DO Jan 18, 2021 11:31
[2021-01-18] MEDS ORDERED: chlordiazePOXIDE 25 MG CAP PO ONE (18:00)
[2021-01-18] MEDS: traZODone 50 MG TAB PO SCH (21:22)
[2021-01-18] MEDS: SIMVASTATIN 40 MG TAB PO SCH (21:23)
[2021-01-18] MEDS: METOPROLOL SUCC (TopROL XL) 50MG **XL** TAB PO SCH (21:26)
[2021-01-19 01:30] VITALS: BP 103/56
[2021-01-19] MEDS: ceFAZolin SOD 2 GM in IV 1 EA IV SCH ×2 (01:54→09:16)
[2021-01-19 06:00] VITALS: BP 109/70
[2021-01-19 06:21] LABS: HEMATOCRIT 46.1 % (42.0-52.0); HEMOGLOBIN 14.9 g/dl (13.5-17.5); MEAN CORPUSCULAR HEMOGLOBIN 31.6 pg (27.0-33.0); MEAN CORPUSCULAR HGB CONC 32.3 g/dl (32.0-36.5); MEAN CORPUSCULAR VOLUME 97.9 fl (80.0-96.0); PLATELET COUNT, AUTOMATED 148 10^3/uL (150-450); RED BLOOD COUNT 4.71 10^6/uL (4.30-6.10); WHITE BLOOD COUNT 7.2 10^3/uL (4.0-10.0)
[2021-01-19 06:52] LABS: ALBUMIN 3.1 GM/DL (3.2-5.2); ALT/SGPT 46 U/L (12-78); BILIRUBIN,TOTAL 0.4 MG/DL (0.2-1.0); BLOOD UREA NITROGEN 12 MG/DL (7-18); CALCIUM LEVEL 8.1 MG/DL (8.5-10.1); CARBON DIOXIDE LEVEL 31 MEQ/L (21-32); CHLORIDE LEVEL 103 MEQ/L (98-107); CREATININE FOR GFR 0.93 MG/DL (0.70-1.30); GLOMERULAR FILTRATION RATE > 60.0 (>60); GLUCOSE, FASTING 204 MG/DL (70-100); SODIUM LEVEL 137 MEQ/L (136-145); TOTAL PROTEIN 6.1 GM/DL (6.4-8.2)
[2021-01-19] MEDS: TIOTROPIUM INHALER/CAPSULE (SPIRIVA) INH SCH (07:16)
[2021-01-19] MEDS: ADVAIR HFA 230/21MCG INHALER INH SCH (07:16)
[2021-01-19] MEDS: VENLAFAXINE **XR** 75MG CAPSULE PO SCH (09:12)
[2021-01-19] MEDS: THIAMINE 100 MG TAB PO SCH (09:12)
[2021-01-19] MEDS: FUROSEMIDE 40 MG TAB PO SCH (09:12)
[2021-01-19] MEDS: OMEPRAZOLE 20 MG CAP PO SCH (09:12)
[2021-01-19] MEDS: FOLIC ACID 1 MG TAB PO SCH (09:13)
[2021-01-19 09:15] VITALS: BP 119/76
[2021-01-19] MEDS: MULTIVITAMINS/MINERALS THERAP 1 TAB PO SCH (09:15)
[2021-01-19] MEDS: APIXABAN 5 MG TAB (ELIQUIS) PO SCH (09:16)
[2021-01-19] MEDS: FLUTICASONE PROP 0.05% NASAL SPRAY 16 GM (FLONASE) NARES SCH (09:16)
--- NOTE | 2021-01-19 09:58 | REPVR ---
PROCEDURE INFORMATION: Exam: CT Head Without Contrast Exam date and time: 01/19/2021 7:55 AM Age: 45 years old Clinical indication: Other: Scalp abscess TECHNIQUE: Imaging protocol: Computed tomography of the head without contrast. Radiation optimization: All CT scans at this facility use at least one of these dose optimization techniques: automated exposure control; mA and/or kV adjustment per patient size (includes targeted exams where dose is matched to clinical indication); or iterative reconstruction. COMPARISON: CT Head without contrast 01/17/2021 11:50 AM FINDINGS: Brain: Normal. No hemorrhage. Unremarkable white matter. No mass effect. Cerebral ventricles: No ventriculomegaly. Bones/joints: Unremarkable. No acute fracture. Paranasal sinuses: There is moderate ethmoid mucosal thickening. Mastoid air cells: Visualized mastoid air cells are well aerated. Soft tissues: There is diffuse left scalp swelling and induration with prominent area of inflammatory change extending to the skin. This appears increased in size in the interval. There is no focal fluid collection at this time. IMPRESSION: Diffuse soft tissue inflammatory change involving the left scalp with a focal area of inflammatory phlegmon extending to the skin, increased in the interval. The previously apparent tiny fluid collection is no longer identified. Electronically signed by: Rohini Walton On 01/19/2021 09:59:27 AM
--- NOTE | 2021-01-19 10:39 | DS.PDOC ---
Discharge Summary General Date of Admission Jan 16, 2021 at 20:35 Date of Discharge Jan 19, 2021 Attending Physician: ABDIRAHMAN PETE MD Discharge Summary PROCEDURES PERFORMED DURING STAY: None. ADMITTING DIAGNOSES: 1. Cellulitis, face, scalp. 2. Atrial fibrillation with hx of cardioversion, currently in atrial fibrillation. 3. Hypertension 4. Obstructive sleep apnea. 5. Hypercholesterolemia. 6. History of depression 7. History of GERD. 8. History of degenerative disk disease. 9. Deep vein thrombosis (DVT) prophylaxis. DISCHARGE DIAGNOSES: 1. Cellulitis of face and scalp. 2. Atrial fibrillation. 3. Hypertension. 4. Obstructive sleep apnea. COMPLICATIONS/CHIEF COMPLAINT: Cellulitis,Cellulitis Of Face, Head Or Scalp. HISTORY OF PRESENT ILLNESS: Patient is a 45-year-old male who presented to the ED due to an infection on his scalp. He states that he had a small pimple or ingrown hair on his scalp and his significant other tried to pop it and put peroxide on it. The area seemed to worsen and became more tender, erythematous, and swollen. He went to urgent care last (01/13/21) where he was placed on doxycycline. Patient presented the ED due to increasing tenderness, erythema, and swelling that has since spread down posterior to his ear. A large swollen occipital lymph node on the L and some spreading of the erythema to the face was noted at the time of admission. He was admitted for cellulitis to the scalp, head, and face due to failure of outpatient treatment. HOSPITAL COURSE: Patient was started on 2g Cefazolin IV in the ED and it was continued for the duration of his stay in the hospital (4 days). Initial imaging of maxillofacial CT with contrast and neck CT showed no acute abnormalities. However, a CT head done later showed a 6 mm fluid collection. It was deemed that this was too small to drain so patient was continued on IV antibiotics. Throughout his stay, patient reported continued improvement of erythema, swelling, and pain to the site of cellulitis. CT head was repeated on day of discharge (01/19/21) showed that the previously apparent tiny fluid collection was no longer identified. Dur ing his stay, patient reported that patient drinks 12 beers daily and so he was placed on CIWA protocol. He did not develop any tremors or shakiness throughout his stay. At the time of admission, patient was placed on telemetry monitoring and continued on Eliquis due to atrial fibrillation. There were no acute events in regards to atrial fibrillation. DISCHARGE MEDICATIONS: Please see below. ALLERGIES: Please see below. PHYSICAL EXAMINATION ON DISCHARGE: VITAL SIGNS: Please see below. GENERAL: Patient is well appearing. Sitting comfortably at rest and in no distress. HEENT: No scleral icterus. EOMI. Decreased erythema with softening of overlying scalp tissue. Decreased tenderness to palpation at site of abscess. Left postauricular lymphadenopathy of 1 lymph node. No facial swelling present. NECK: Supple. No neck swelling present. No thyromegaly; no goiter. CARDIOVASCULAR EXAMINATION: Irregularly irregular rhythm. Normal rate. No murmurs, rubs, or gallops. RESPIRATORY EXAMINATION: Decreased breath sounds; No wheezes or retractions. ABDOMINAL EXAMINATION: No tenderness to palpation. Bowel sounds positive. Benign. EXTREMITIES: No cyanosis, clubbing, or edema. Peripheral pulses equal and palpable bilaterally. SKIN: Skin is warm and dry. LABORATORY DATA: Please see below. IMAGING: Neck CT (01/16/21): No acute abnormality per Dr. Abad Lambert. CXR (01/16/21): No acute pulmonary disease per Dr. Harpal Wallace. Maxillofacial CT (01/16/21): No acute findings per Dr. Abad Lambert. Head CT (01/17/21): Diffuse left temporoparietal scalp swelling with an associated overlaying tiny 6 mm collection within the subcutaneous fat extending to the skin, potentially abscess per Dr. Rohini Walton. Head CT (01/19/21): Diffuse soft tissue inflammatory change involving the left scalp with a focal area of inflammatory phlegmon extending to the skin, increase d in the interval. The previously apparent tiny fluid collection is no longer identified. Per Dr. Rohini Walton. PROGNOSIS: Fair ACTIVITY: As tolerated. DIET: As tolerated. DISCHARGE PLAN: Discharge home. DISCHARGE INSTRUCTIONS: 1. Take Augmentin 875 mg PO BID as directed for 4 days. ITEMS TO FOLLOWUP ON ON OUTPATIENT: 1. Follow up with PCP in 1 week. DISCHARGE CONDITION: Stable. TIME SPENT ON DISCHARGE: Greater than 35 minutes. Vital Signs/I&Os Vital Signs Date Time Temp Pulse Resp B/P (MAP) Pulse Ox O2 Delivery O2 Flow Rate FiO2 01/19/21 09:15 119/76 01/19/21 06:00 97.6 58 18 98 NIPPV (BIPAP/CPAP) I&O- Last 24 Hours up to 6 AM 01/19/21 06:00 Intake Total 2100 ml Output Total 1975 ml Balance 125 ml Laboratory Data Labs 24H Laboratory Tests 2 01/19/21 06:06: Nucleated Red Blood Cells % (auto) 0.0, Anion Gap 3L, Glomerular Filtration Rate > 60.0, Calcium Level 8.1L, Total Bilirubin 0.4, Aspartate Amino Transf (AST/SGOT) 29, Alanine Aminotransferase (ALT/SGPT) 46, Alkaline Phosphatase 111, Total Protein 6.1L, Albumin 3.1L, Albumin/Globulin Ratio 1.0 CBC/BMP Laboratory Tests 01/19/21 06:06 Microbiology Microbiology 01/16/21 Blood Culture - Preliminary, Resulted No Growth after 48 hours. All Specime... 01/16/21 Blood Culture - Preliminary, Resulted No Growth after 48 hours. All Specime... Discharge Medications Scheduled Amoxicillin/Potassium Clav (Augmentin 875-125 Tablet) 1 Each Tablet, 875 MG PO BID for scalp abscess Apixaban (Eliquis) 5 Mg Tablet, 5 MG PO BID, (Reported) Ergocalciferol (Vitamin D2) (Vitamin D2) 50,000 Units Cap, 50,000 UNITS PO QWEEK, (Reported) SUNDAYS Fluticasone Propion/Salmeterol (Fluticasone-Salmeterol 232-14) 1 Each Aer.pow.ba, 1 PUFF PO BID, (Reported) Folic Acid (Folic Acid) 1 Mg Tablet, 1 MG PO DAILY, (Reported) Furosemide (Furosemide) 40 Mg Tablet, 40 MG PO DAILY, (Reported) Lisinopril (Lisinopril) 10 Mg Tablet, 10 MG PO DAILY, (Reported) Lovastatin (Lovastatin) 40 Mg Tablet, 40 MG PO QHS, (Reported) Metoprolol Succinate (Toprol Xl) 50 Mg Tab.er.24h, 50 MG PO QHS, (Reported) Omeprazole (Omeprazole) 20 Mg Capsule.dr, 20 MG PO DAILY, (Reported) Pregabalin (Pregabalin) 150 Mg Capsule, 150 MG PO BID, (Reported) Thiamine HCl (Vitamin B-1) 100 Mg Tablet, 1 TAB PO DAILY, (Reported) Trazodone HCl (Trazodone HCl) 150 Mg Tablet, 150 MG PO QHS, (Reported) Umeclidinium [place] (Incruse Ellipta) 62.5 Mcg Blst.w.dev, 1 PUFF INH DAILY, (Reported) Venlafaxine HCl (Venlafaxine HCl ER) 150 Mg Cap.er.24h, 150 MG PO DAILY, (Reported) Scheduled PRN Acetaminophen with Codeine (Acetaminophen-Cod #4 Tablet) 1 Each Tablet, 1 TAB PO Q4H PRN for pain, (Reported) Albuterol Sulfate (Ventolin Hfa) 18 Gm Hfa.aer.ad, 2 PUFF INH Q4H PRN for SOB/WHEEZING, (Reported) Carisoprodol (Soma) 350 Mg Tablet, 350 MG PO TID PRN for PAIN, (Reported) Nortriptyline HCl (Nortriptyline HCl) 10 Mg Capsule, 10 MG PO QHS PRN for SLEEP, (Reported) Sildenafil Citrate (Viagra) 100 Mg Tablet, 100 MG PO ASDIRECTED PRN for ERECTILE DYSFUNCTION, (Reported) Allergies Coded Allergies: duloxetine (Verified Allergy, Severe, SWELLING OF TONGUE, 08/02/20) GME ATTESTATION GME ATTESTATION My faculty preceptor for this patient encounter was physically present during the encounter and was fully available. All aspects of the patient interview, examination, medical decision making process, and medical care plan development were reviewed and approved by the faculty preceptor. The faculty preceptor is aware and concurs with the plan as stated in the body of this note and will attest to such by his/her cosignature. ATTENDING NOTE I, Abdirahman Pete MD, have independently examined this patient and performed my own physical exam, as well as reviewed the documentation and edited where necessary. I have discussed in detail with the resident / student the findings and plan of treatment as documented by the resident / student and edited their note. I agree with their findings and treatment plan and have edited their documentation. The patient's cellulitis has improved a lot and at this time. Repeat CAT scan does not show us any collection. He will be given Augmentin 875 for 4 more days and has been advised to keep the area dry with out scratching. He also has been advised that in case there is any increase in swelling, he should report to the ER or go to the PCP as soon as possible. He was counseled in detail regarding alcohol cessation. He will be discharged home today. Janki MENDOZA-3 Jan 19, 2021 10:35 ABDIRAHMAN PETE MD Jan 19, 2021 11:25
[2021-01-19] MEDS ORDERED: AUGM875T28 PO (10:41)
== END 2021-01-19 13:23 | disposition home or self-care (01) | DRG 383 ==
LOC: M ED 15:49 → M ED INP 20:35 → ENRESERV 20:50 → M MSPAV 21:59
PROVIDERS: ADMIT Internal Medicine; ATTEND Internal Medicine
DX: L03.811 Cellulitis of head [any part, except face] (principal); I48.91 Unspecified atrial fibrillation; I10 Essential (primary) hypertension; F17.210 Nicotine dependence, cigarettes, uncomplicated; L03.211 Cellulitis of face; E78.00 Pure hypercholesterolemia, unspecified; J44.9 Chronic obstructive pulmonary disease, unspecified; G47.33 Obstructive sleep apnea (adult) (pediatric); R59.0 Localized enlarged lymph nodes; F10.20 Alcohol dependence, uncomplicated; F32.9 Major depressive disorder, single episode, unspecified; K21.9 Gastro-esophageal reflux disease without esophagitis; N52.9 Male erectile dysfunction, unspecified; Z90.49 Acquired absence of other specified parts of digestive tract; Z86.010 Personal history of colon polyps; Z79.01 Long term (current) use of anticoagulants; Z79.899 Other long term (current) drug therapy; Z20.822 Contact with and (suspected) exposure to COVID-19

== ENCOUNTER → 2021-02-04 | Outpatient (REF) | payer OTHER ==
[~2021-02-04] MED LIST changes: +ACET300T52 PO; +AUGM875T28 PO; +DOXY100C37 PO; +ELIQ5TAB PO; +FOLI1TAB11 PO; +LISI10TA22 PO; +OMEP-218 PO; +TRAZ1TAB14 PO; +VENL75CA47
[2021-02-04 17:26] LABS: HEMATOCRIT 50.6 % (42.0-52.0); HEMOGLOBIN 16.7 g/dl (13.5-17.5); MEAN CORPUSCULAR HEMOGLOBIN 31.8 pg (27.0-33.0); MEAN CORPUSCULAR VOLUME 96.4 fl (80.0-96.0); PLATELET COUNT, AUTOMATED 128 10^3/uL (150-450); RED BLOOD COUNT 5.25 10^6/uL (4.30-6.10); WHITE BLOOD COUNT 7.3 10^3/uL (4.0-10.0)
[2021-02-04 17:55] LABS: BLOOD UREA NITROGEN 10 MG/DL (7-18); CALCIUM LEVEL 9.4 MG/DL (8.5-10.1); CARBON DIOXIDE LEVEL 30 MEQ/L (21-32); CHLORIDE LEVEL 101 MEQ/L (98-107); CREATININE FOR GFR 0.89 MG/DL (0.70-1.30); GLOMERULAR FILTRATION RATE > 60.0 (>60); GLUCOSE, FASTING 235 MG/DL (70-100); NT-PRO BNP 365 PG/ML (<125); POTASSIUM SERUM 4.5 MEQ/L (3.5-5.1); SODIUM LEVEL 135 MEQ/L (136-145)
[2021-02-04 18:37] LABS: ATYPICAL LYMPH 6 % (0-5); BASOPHILS 1 % (0-1); EOSINOPHILS 6 % (0-3); LYMPHOCYTES 36 % (16-44); NEUTROPHILS 47 % (28-66)
[2021-02-04 18:38] LABS: ANISOCYTOSIS 1+; HYPOCHROMASIA 1+; PLATELET ESTIMATE DECREASED (NORMAL)
== END ==
LOC: M LABDRWAD 17:04
PROVIDERS: ATTEND Physician Assistant
DX: R07.9 Chest pain, unspecified (principal); I50.22 Chronic systolic (congestive) heart failure

== ENCOUNTER → 2021-02-16 | Outpatient (CLI) | payer OTHER | LOC: M LABSMTC 11:52 | PROVIDERS: ATTEND Internal Medicine Cardiovascular Disease | DX: Z11.52 Encounter for screening for COVID-19 (principal) ==

== ENCOUNTER 2021-03-07 14:27 | Emergency (ER) | payer OTHER ==
[~2021-03-07] VITALS: Ht 175.3 cm; Wt 154.6 kg
[2021-03-07] MEDS ORDERED: METF500T13 (15:12)
--- NOTE | 2021-03-07 15:51 | ECGEPIP ---
[facility] - ED Test Date: 2021-03-07 Pat Name: RICARDO TELLEZ Department: Room: - Gender: Male Library Manager: BRETT : 1975 Requested By: Isac Wilson Order Number: [id number] Reading MD: Earnest Roper Measurements Intervals [place] Rate: 82 P: [place]: QRS: -22 QRSD: 80 T: 10 QT: 362 QTc: 422 Interpretive Statements Atrial fibrillation Low voltage QRS throughoput Similar to tracing done 01-16-21 Electronically Signed on 03-07-2021 15:50:46 EDT by Earnest Roper
[2021-03-07 16:03] LABS: HEMATOCRIT 50.3 % (42.0-52.0); MEAN CORPUSCULAR HEMOGLOBIN 31.3 pg (27.0-33.0); MEAN CORPUSCULAR HGB CONC 33.8 g/dl (32.0-36.5); MEAN CORPUSCULAR VOLUME 92.6 fl (80.0-96.0); PLATELET COUNT, AUTOMATED 127 10^3/uL (150-450); RED BLOOD COUNT 5.43 10^6/uL (4.30-6.10); WHITE BLOOD COUNT 6.8 10^3/uL (4.0-10.0)
[2021-03-07] MEDS ORDERED: BENZONATATE 100 MG CAP PO ONE (16:05)
[2021-03-07] MEDS ORDERED: NS 500 ML IV ONE (16:05)
[2021-03-07 16:21] LABS: ATYPICAL LYMPH 12 % (0-5); BASOPHILS 1 % (0-1); EOSINOPHILS 2 % (0-3); LYMPHOCYTES 27 % (16-44); MONOCYTES 2 % (0-5); NEUTROPHILS 53 % (28-66); PLATELET ESTIMATE DECREASED (NORMAL)
[2021-03-07 16:22] LABS: ANISOCYTOSIS 1+
--- NOTE | 2021-03-07 16:22 | REP ---
INDICATION: cough COMPARISON: 01/16/2021 TECHNIQUE: Portable AP view of the chest FINDINGS: The mediastinum and cardiac silhouette are stable and within normal limits for portable technique. The lung verma are clear without acute consolidation, effusion, or pneumothorax. Skeletal structures are intact. IMPRESSION: No acute cardiopulmonary process appreciated. <Electronically signed by Dimitri Barragan > 03/07/21 [id number]
[2021-03-07 17:46] LABS: CK-MB VALUE MASS 1.7 NG/ML (<3.6); CPK CREATINE PHOSPHOKINASE 209 U/L (39-308); MAGNESIUM LEVEL 1.9 MG/DL (1.8-2.4); MB/CK RELATIVE INDEX 0.81 (< OR =4); TROPONIN I < 0.02 NG/ML (< 0.10)
[2021-03-07] MEDS ORDERED: TESS100C PO (18:32)
[2021-03-07 18:55] VITALS: BP 115/65
== END 2021-03-07 18:58 | disposition home or self-care (01) ==
LOC: M ED 14:27
DX: R42 Dizziness and giddiness (principal); J20.9 Acute bronchitis, unspecified; J44.0 Chronic obstructive pulmonary disease with (acute) lower respiratory infection; E11.9 Type 2 diabetes mellitus without complications; I48.91 Unspecified atrial fibrillation; Z79.899 Other long term (current) drug therapy; Z79.01 Long term (current) use of anticoagulants; Z88.8 Allergy status to other drugs, medicaments and biological substances; F17.210 Nicotine dependence, cigarettes, uncomplicated

== ENCOUNTER → 2021-04-06 | Outpatient (CLI) | payer OTHER ==
[~2021-04-06] MED LIST changes: +GABA-283 PO; -GABA-845 PO; +METF500T13; +TESS100C PO
--- NOTE | 2021-04-07 08:57 | REP ---
INDICATION: MILD PERSISTENT ASTHMA COMPARISON: 09/10/2020, 02/20/2017 TECHNIQUE: Axial noncontrast images from the thoracic inlet to the upper abdomen with coronal and sagittal reformations. This CT examination was performed using the following dose reduction techniques: Automated exposure control, adjustment of mA and/or kv according to the patient's size, and use of iterative reconstruction technique. FINDINGS: Chronic appearing interstitial changes along with few scattered noncalcified nodules measuring up to 4 mm are again identified and similar to prior examinations. No obvious acute consolidation, new nodule or mass lesion identified. No pleural effusion. No pneumothorax. Tracheobronchial tree is patent and without bronchiectasis. Mediastinum demonstrates normal thoracic aorta, pulmonary vasculature, and heart/pericardium. No adenopathy. Musculoskeletal structures are intact and without acute osseous abnormality. Limited upper abdomen demonstrates hepatosteatosis and normal bilateral adrenal glands. IMPRESSION: Chronic appearing changes including few scattered noncalcified nodules stable compared with prior examination No acute mediastinal or pleuroparenchymal process appreciated. <Electronically signed by Dimitri Barragan > 04/07/21 [id number]
== END ==
LOC: M RAD 14:53
PROVIDERS: ATTEND Nurse Practitioner Family
DX: J45.30 Mild persistent asthma, uncomplicated (principal)

== ENCOUNTER → 2021-06-03 | Outpatient (REF) | payer OTHER ==
[~2021-06-03] MED LIST changes: +ATOR40TA75 PO; +CEFD1CAP8 PO; -DOXY100C37 PO; +DOXY1CAP62 PO; +ERGO500029 PO; +METO1TAB33 PO; +OMEP40CA4 PO; -OMEP40CA97 PO; +TORS100T PO; -VITA50005 PO
[2021-06-03 12:02] LABS: HEMATOCRIT 55.2 % (42.0-52.0); HEMOGLOBIN 18.7 g/dl (13.5-17.5); MEAN CORPUSCULAR HGB CONC 33.9 g/dl (32.0-36.5); MEAN CORPUSCULAR VOLUME 91.5 fl (80.0-96.0); PLATELET COUNT, AUTOMATED 147 10^3/uL (150-450); RED BLOOD COUNT 6.03 10^6/uL (4.30-6.10); WHITE BLOOD COUNT 7.2 10^3/uL (4.0-10.0)
[2021-06-03 12:40] LABS: CREATININE, URINE 43.8 MG/DL; MALB URINE SIEMENS < 5.0 MG/L; MAU/CREAT RATIO 11.4 MCG/MG (0.0-30.0)
[2021-06-03 12:57] LABS: ALBUMIN 3.7 GM/DL (3.2-5.2); ALT/SGPT 56 U/L (12-78); BILIRUBIN,TOTAL 0.7 MG/DL (0.2-1.0); BLOOD UREA NITROGEN 14 MG/DL (7-18); CALCIUM LEVEL 9.9 MG/DL (8.5-10.1); CARBON DIOXIDE LEVEL 35 MEQ/L (21-32); CHLORIDE LEVEL 90 MEQ/L (98-107); CHOLESTEROL LEVEL 117 MG/DL (<200); CHOLESTEROL RISK RATIO 4.034 (<5); CREATININE FOR GFR 1.25 MG/DL (0.70-1.30); FREE T4 1.12 NG/DL (0.76-1.46); GLOMERULAR FILTRATION RATE > 60.0 (>60); GLUCOSE, FASTING 477 MG/DL (70-100); HDL CHOLESTEROL 29 MG/DL (>40); LDL CHOLESTEROL 20 MG/DL (<100); NON-HDL-C 88 MG/DL; SODIUM LEVEL 129 MEQ/L (136-145); TOTAL PROTEIN 7.2 GM/DL (6.4-8.2); TRIGLYCERIDES LEVEL 340 MG/DL (<150)
[2021-06-03 13:07] LABS: HEMOGLOBIN A1c 11.1 %
== END ==
LOC: M SFHCADAM 09:24
PROVIDERS: ATTEND Family Medicine
DX: I48.20 Chronic atrial fibrillation, unspecified (principal); G47.33 Obstructive sleep apnea (adult) (pediatric); E11.9 Type 2 diabetes mellitus without complications; E78.2 Mixed hyperlipidemia

== ENCOUNTER → 2021-06-03 | Outpatient (CLI) | payer OTHER ==
[~2021-06-03] MED LIST changes: +BASA100I SC
== END ==
LOC: M LABSMTC 12:40
PROVIDERS: ATTEND Anesthesiology
DX: Z01.818 Encounter for other preprocedural examination (principal); Z11.52 Encounter for screening for COVID-19

== ENCOUNTER → 2021-06-07 | Outpatient (REF) | payer OTHER | LOC: M LAB REF 19:16 | PROVIDERS: ATTEND Dermatology | DX: L72.0 Epidermal cyst (principal); L90.5 Scar conditions and fibrosis of skin ==

== ENCOUNTER 2021-06-08 06:14 | Day surgery (SDC) | payer OTHER ==
[~2021-06-08] VITALS: Ht 182.9 cm; Wt 137.9 kg
[~2021-06-08 06:14] MED LIST changes: -BASA100I SC; +LR 1,000 ML IV ONE
[2021-06-08] MEDS ORDERED: BASA100I SC (06:50)
[2021-06-08] MEDS ORDERED: propofoL 200 MG/20 ML VIAL As Ordered ONE (07:00)
[2021-06-08] MEDS ORDERED: MIDAZOLAM INJ 2MG/2ML VIAL (J2250 PER 1MG) As Ordered ONE (07:00)
[2021-06-08] MEDS ORDERED: dexameTHASONE 4 MG/ML 1ML VIAL (J1100 PER 1MG) As Ordered ONE (07:01)
[2021-06-08] MEDS ORDERED: ONDANSETRON 4MG/2ML VIAL As Ordered ONE (07:01)
[2021-06-08] MEDS ORDERED: ALBUTEROL 6.7GM INHALER **FOR ANES. CART/OMNICELL ONLY As Ordered ONE (07:30)
[2021-06-08] MEDS ORDERED: ONDANSETRON 4MG/2ML VIAL IV PRN (08:30)
[2021-06-08] MEDS ORDERED: LR 1,000 ML IV SCH (08:30)
[2021-06-08 08:56] VITALS: BP 125/72
--- NOTE | 2021-06-08 16:33 | RO ---
OPERATIVE NOTE DATE OF OPERATION: 06/08/2021 PREOPERATIVE DIAGNOSIS: Atrial fibrillation. POSTOPERATIVE DIAGNOSIS: Atrial fibrillation. PROCEDURE: Cardioversion. SURGEON: Pepper Esposito MD CHARCOAL BURNER BEEHIVE KILN: None ANESTHESIOLOGIST: Yannick Waller DO, Brian Brown CRNA ANESTHESIA: Moderate sedation BRIEF HISTORY: Mr. Langford is a 46-year-old man who has trouble with persistent atrial fibrillation for several years. He originally was treated with amiodarone and eventually cardioverted into sinus rhythm and was maintaining sinus rhythm but because the amiodarone was not a good long-term choice, we had to discontinue the medication and unfortunately he relapsed in atrial fibrillation again. We put him on flecainide which failed to restore sinus mechanism and consequently we decided to pursue DC cardioversion. The patient has been chronically anticoagulated with Eliquis and denies skipping any doses in the last several weeks. The consent for the procedure was previously obtained on an outpatient basis. I again talked to him about the procedure prior to starting and explained the potential complications and alternatives. He still wanted to proceed. DESCRIPTION OF PROCEDURE: The procedure was performed in recovery room. The patient presented in a fasting condition. After all the appropriate monitors were applied and appropriate timeout was taken, he was cardioverted with 325 joules of energy applied in biphasic mode in synchronized fashion. Single shock led to rastafari of sinus mechanism. At the time of my dictation, 12-lead EKG is pending and the patient is still under influence of anesthesia. Provided no complications occur, he will be discharged home later today to continue his chronic medications. Follow up will be arranged in our office next week. ANGELITO
--- NOTE | 2021-06-08 18:21 | ECGEPIP ---
[facility] Test Date: 2021-06-08 Pat Name: RICARDO TELLEZ Department: Room: - Gender: Male City Manager: JORGE LUIS : 1975 Requested By: Pepper Esposito Order Number: [id number] Reading MD: Frandy Vanegas Measurements Intervals [place] Rate: 63 P: [place]: QRS: -37 QRSD: 86 T: 1 QT: 386 QTc: 395 Interpretive Statements Atrial fibrillation Left axis deviation/LAHB Compared to prior tracings (2) in the system, Atrial Fib is not new Electronically Signed on 06-08-2021 18:21:10 EDT by Frandy Vanegas
--- NOTE | 2021-06-08 18:31 | ECGEPIP ---
[facility] Test Date: 2021-06-08 Pat Name: RICARDO TELLEZ Department: Room: - Gender: Male Director Of Group Counseling Program: JORGE LUIS : 1975 Requested By: Pepper Esposito Order Number: [id number] Reading MD: Frandy Vanegas Measurements Intervals [place] Rate: 71 P: 41 MT: 186 QRS: -36 QRSD: 94 T: 15 QT: 406 QTc: 441 Interpretive Statements Normal sinus rhythm Left axis deviation Low voltage QRS, chest leads Possible prior inferior infarct Compared to prior tracings (5) in the system, A Fib was noted in the past Electronically Signed on 06-08-2021 18:30:43 EDT by Frandy Vanegas
== END 2021-06-08 09:41 | disposition home or self-care (01) ==
LOC: M SDC 06:14
PROVIDERS: ATTEND Internal Medicine Cardiovascular Disease
DX: I48.91 Unspecified atrial fibrillation (principal); E78.00 Pure hypercholesterolemia, unspecified; I10 Essential (primary) hypertension; J44.9 Chronic obstructive pulmonary disease, unspecified; G47.30 Sleep apnea, unspecified; E11.9 Type 2 diabetes mellitus without complications; K21.9 Gastro-esophageal reflux disease without esophagitis; F41.9 Anxiety disorder, unspecified; F32.9 Major depressive disorder, single episode, unspecified; F17.218 Nicotine dependence, cigarettes, with other nicotine-induced disorders; Z79.01 Long term (current) use of anticoagulants; Z79.4 Long term (current) use of insulin; Z79.84 Long term (current) use of oral hypoglycemic drugs; Z79.899 Other long term (current) drug therapy
CPT/HCPCS: 92960; 93005; J1100; J2250; J2405

== ENCOUNTER 2021-07-21 23:33 | Emergency (ER) | payer MEDICARE, MEDICAID ==
[~2021-07-21] VITALS: Ht 188 cm; Wt 136.4 kg
[~2021-07-21 23:33] MED LIST changes: +BASA100I SC; -LR 1,000 ML IV ONE
[2021-07-22 03:09] LABS: HEMATOCRIT 49.3 % (42.0-52.0); HEMOGLOBIN 17.1 g/dl (13.5-17.5); MEAN CORPUSCULAR HEMOGLOBIN 31.7 pg (27.0-33.0); MEAN CORPUSCULAR HGB CONC 34.7 g/dl (32.0-36.5); MEAN CORPUSCULAR VOLUME 91.3 fl (80.0-96.0); PLATELET COUNT, AUTOMATED 166 10^3/uL (150-450); WHITE BLOOD COUNT 9.9 10^3/uL (4.0-10.0)
[2021-07-22 03:24] LABS: AMPHETAMINES LEVEL URINE NEGATIVE (NEGATIVE); BARBITURATES URINE NEGATIVE (NEGATIVE); BENZODIAZEPINES URINE NEGATIVE (NEGATIVE); CANNABINOIDS URINE NEGATIVE (NEGATIVE); COCAINE METABOLITE URINE NEGATIVE (NEGATIVE); METHADONE URINE NEGATIVE (NEGATIVE); OPIATES URINE NEGATIVE (NEGATIVE); PHENCYCLIDINE URINE NEGATIVE (NEGATIVE)
[2021-07-22 03:27] LABS: ACETAMINOPHEN LEVEL < 2.0 UG/ML (10.0-30.0); ALBUMIN 3.3 GM/DL (3.2-5.2); ALT/SGPT 40 U/L (12-78); BILIRUBIN,DIRECT 0.2 MG/DL (0.0-0.2); BILIRUBIN,TOTAL 0.6 MG/DL (0.2-1.0); BLOOD UREA NITROGEN 10 MG/DL (7-18); CALCIUM LEVEL 8.2 MG/DL (8.5-10.1); CARBON DIOXIDE LEVEL 26 MEQ/L (21-32); CHLORIDE LEVEL 95 MEQ/L (98-107); ETHYL ALCOHOL (ETHANOL) 0.096 % (0.000-0.010); GLOMERULAR FILTRATION RATE > 60.0 (>60); GLUCOSE, FASTING 102 MG/DL (70-100); POTASSIUM SERUM 3.1 MEQ/L (3.5-5.1); SODIUM LEVEL 133 MEQ/L (136-145)
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
[2021-07-22] MEDS ORDERED: POTASSIUM CHLORIDE 10 MEQ SR TABLET PO ONE (06:05)
[2021-07-22] MEDS ORDERED: APIXABAN 5 MG TAB (ELIQUIS) PO ONE (07:10)
[2021-07-22] MEDS ORDERED: FOLIC ACID 1 MG TAB PO ONE (07:10)
[2021-07-22] MEDS ORDERED: METOPROLOL SUCC (TopROL XL) 100MG *XL* TAB PO ONE (07:10)
[2021-07-22] MEDS ORDERED: metFORMIN (GLUCOPHAGE) 500MG TAB PO ONE (07:10)
[2021-07-22] MEDS ORDERED: ATORVASTATIN 20 MG TAB PO ONE (07:10)
[2021-07-22] MEDS ORDERED: THIAMINE 100 MG TAB PO ONE (07:15)
[2021-07-22] MEDS ORDERED: OMEPRAZOLE 20 MG CAP PO ONE (07:15)
[2021-07-22] MEDS ORDERED: PREGABALIN 75 MG CAP(LYRICA) PO ONE (07:15)
[2021-07-22] MEDS ORDERED: VENLAFAXINE **XR** 75MG CAPSULE PO ONE (07:15)
[2021-07-22] MEDS ORDERED: TORSEMIDE 100 MG TAB PO ONE (08:00)
[2021-07-22] MEDS ORDERED: FLUTISP NARES (08:55)
[2021-07-22] MEDS ORDERED: POTA20TA6 PO (08:55)
[2021-07-22] MEDS ORDERED: METF-877 PO (08:55)
[2021-07-22] MEDS ORDERED: TRAZ-257 PO (08:55)
[2021-07-22] MEDS ORDERED: FLEC1TAB PO (08:56)
[2021-07-22] MEDS ORDERED: LISI10TA22 PO (08:56)
[2021-07-22] MEDS ORDERED: HOME MED LIST COMPLETE! XX SCH (09:00)
[2021-07-22 16:58] LABS: RSV AMPLIFICATION NEGATIVE (NEGATIVE)
[2021-07-22 18:15] VITALS: BP 138/85
--- NOTE | 2021-07-25 16:31 | ECGEPIP ---
[facility] - ED Test Date: 2021-07-22 Pat Name: RICARDO TELLEZ Department: Room: - Gender: Male On Site Nurse: AB : 1975 Requested By: CHARLES Durbin Order Number: [id number] Reading MD: Alison Arnold Measurements Intervals [place] Rate: 89 P: 46 [place]: 154 QRS: -51 QRSD: 84 T: 26 QT: 358 QTc: 435 Interpretive Statements Normal sinus rhythm Left axis deviation increased rate 06/08/21 Electronically Signed on 07-25-2021 16:30:49 EDT by Alison Arnold
== END 2021-07-22 18:15 ==
LOC: M ED 23:33
DX: F33.9 Major depressive disorder, recurrent, unspecified (principal); F17.210 Nicotine dependence, cigarettes, uncomplicated; Z79.899 Other long term (current) drug therapy; Z79.51 Long term (current) use of inhaled steroids; Z79.4 Long term (current) use of insulin

== ENCOUNTER → 2021-09-07 | Outpatient (REF) | payer OTHER ==
[~2021-09-07] MED LIST changes: +DOXY-443 PO; -DOXY1CAP62 PO; +FLEC1TAB PO; +FLUTISP NARES; +METF-877 PO; +POTA20TA6 PO; +TRAZ-257 PO
[2021-09-07 14:00] LABS: HEMOGLOBIN A1c 6.6 %
[2021-09-07 14:02] LABS: BLOOD UREA NITROGEN 11 MG/DL (7-18); CARBON DIOXIDE LEVEL 30 MEQ/L (21-32); CHLORIDE LEVEL 108 MEQ/L (98-107); CREATININE FOR GFR 0.98 MG/DL (0.70-1.30); GLOMERULAR FILTRATION RATE > 60.0 (>60); GLUCOSE, FASTING 105 MG/DL (70-100); POTASSIUM SERUM 4.7 MEQ/L (3.5-5.1); SODIUM LEVEL 140 MEQ/L (136-145)
[2021-09-07 14:03] LABS: CALCIUM LEVEL 8.4 MG/DL (8.5-10.1)
== END ==
LOC: M SFHCADAM 10:42
PROVIDERS: ATTEND Family Medicine
DX: E11.9 Type 2 diabetes mellitus without complications (principal)

== ENCOUNTER → 2021-09-08 | Outpatient (CLI) | payer MEDICARE, OTHER ==
--- NOTE | 2021-09-08 16:58 | REP ---
INDICATION: MARTINEZ. COMPARISON: 03/07/2021 a portable exam FINDINGS: The superior mediastinal structures are midline. The cardiac silhouette is unremarkable in size, shape, and position. The diaphragmatic surfaces of the lungs are regular, and the costophrenic angles are clear. The pulmonary verma are clear. The imaged osseous structures are intact. IMPRESSION: There is no acute cardiopulmonary disease. <Electronically signed by Richy Hutson > 09/08/21 [id number]
== END ==
LOC: M ADAMS 16:15
PROVIDERS: ATTEND Family Medicine
DX: R06.02 Shortness of breath (principal)
CPT/HCPCS: 71046; U0003

== ENCOUNTER 2021-09-14 08:37 | Outpatient (CLI) | payer MEDICARE, OTHER ==
[~2021-09-14 08:37] MED LIST changes: +ALBUTEROL 90 MCG/ACT 8GM HFA INHALER INH PRN; +ALBUTEROL SULFATE 2.5 MG/0.5 ML INH NEB SOLN INH PRN; +EPINEPHrine INJ 1 MG/ML 1ML AMP IM PRN; +NS 1,000 ML IV SCH; +diphenhydrAMINE 50MG/ML VIAL (J1200) IV PRN
[2021-09-14] MEDS ORDERED: BAMLANIVIMAB 700 MG, ETESEVIMAB 1,400 MG in NS 250 ML IV ONE (10:00)
[2021-09-14] MEDS ORDERED: methylPREDNISolone 40MG 1ML VIAL IV ONE (10:00)
[2021-09-14] MEDS ORDERED: diphenhydrAMINE 25MG CAP PO ONE (10:00)
[2021-09-14] MEDS: methylPREDNISolone 125MG 2ML VIAL IV PRN ×2 (10:07→10:08)
[2021-09-14 10:08] VITALS: BP 129/65
[2021-09-14 10:32] VITALS: BP 121/62
[2021-09-14 11:08] VITALS: BP 120/65
[2021-09-14 12:08] VITALS: BP 100/58
== END 2021-09-14 12:08 | disposition home or self-care (01) ==
LOC: M OPCLI4PR 08:37
PROVIDERS: ATTEND Family Medicine
DX: U07.1 COVID-19 (principal); Z88.8 Allergy status to other drugs, medicaments and biological substances
CPT/HCPCS: 96375; J2930; M0245

== ENCOUNTER → 2021-10-07 | Outpatient (CLI) | payer MEDICARE, OTHER ==
[~2021-10-07] MED LIST changes: -ALBUTEROL 90 MCG/ACT 8GM HFA INHALER INH PRN; -ALBUTEROL SULFATE 2.5 MG/0.5 ML INH NEB SOLN INH PRN; -AMIO200T3 PO; +AMIO200T49 PO; -CEFD1CAP8 PO; +CEFD300C41 PO; -EPINEPHrine INJ 1 MG/ML 1ML AMP IM PRN; -LISI-898 PO; +LISI5TAB11 PO; -NS 1,000 ML IV SCH; +OMEP-173 PO; -OMEP-218 PO; +POTA-151 PO; -POTA20TA6 PO; +TIZA10TA PO; -TIZA4TAB4 PO; -diphenhydrAMINE 50MG/ML VIAL (J1200) IV PRN
== END ==
LOC: M PLAIMG 13:13
PROVIDERS: ATTEND Nurse Practitioner Family
DX: R91.8 Other nonspecific abnormal finding of lung field (principal)

== ENCOUNTER → 2021-11-24 | Outpatient (CLI) | payer MEDICARE, OTHER | LOC: M SLEEP 20:00 | PROVIDERS: ATTEND Nurse Practitioner Family | DX: G47.33 Obstructive sleep apnea (adult) (pediatric) (principal) ==

== ENCOUNTER → 2021-12-06 | Outpatient (REF) | payer MEDICARE, OTHER ==
[2021-12-06 16:21] LABS: HEMATOCRIT 48.6 % (42.0-52.0); HEMOGLOBIN 16.3 g/dl (13.5-17.5); MEAN CORPUSCULAR HEMOGLOBIN 31.7 pg (27.0-33.0); MEAN CORPUSCULAR HGB CONC 33.5 g/dl (32.0-36.5); MEAN CORPUSCULAR VOLUME 94.4 fl (80.0-96.0); PLATELET COUNT, AUTOMATED 150 10^3/uL (150-450); RED BLOOD COUNT 5.15 10^6/uL (4.30-6.10); WHITE BLOOD COUNT 7.1 10^3/uL (4.0-10.0)
[2021-12-06 16:47] LABS: ALBUMIN 3.4 GM/DL (3.2-5.2); ALT/SGPT 62 U/L (12-78); BILIRUBIN,TOTAL 0.4 MG/DL (0.2-1.0); BLOOD UREA NITROGEN 12 MG/DL (7-18); CARBON DIOXIDE LEVEL 29 MEQ/L (21-32); CHLORIDE LEVEL 102 MEQ/L (98-107); CHOLESTEROL LEVEL 142 MG/DL (<200); CHOLESTEROL RISK RATIO 3.837 (<5); GLOMERULAR FILTRATION RATE > 60.0 (>60); GLUCOSE, FASTING 117 MG/DL (70-100); HDL CHOLESTEROL 37 MG/DL (>40); LDL CHOLESTEROL 70 MG/DL (<100); NON-HDL-C 105 MG/DL; POTASSIUM SERUM 4.4 MEQ/L (3.5-5.1); SODIUM LEVEL 139 MEQ/L (136-145); TOTAL PROTEIN 6.8 GM/DL (6.4-8.2); TRIGLYCERIDES LEVEL 173 MG/DL (<150)
[2021-12-06 16:54] LABS: TOTAL 25(OH) VITAMIN D 70.7 NG/ML (30.0-100.0)
[2021-12-06 17:53] LABS: HEMOGLOBIN A1c 6.2 %
== END ==
LOC: M SFHCADAM 11:55
PROVIDERS: ATTEND Family Medicine
DX: E11.9 Type 2 diabetes mellitus without complications (principal); E78.2 Mixed hyperlipidemia; I48.20 Chronic atrial fibrillation, unspecified; R06.00 Dyspnea, unspecified; E55.9 Vitamin D deficiency, unspecified

== ENCOUNTER → 2022-01-03 | Outpatient (REF) | payer MEDICARE, OTHER | LOC: M SFHCADAM 12:17 | PROVIDERS: ATTEND Physician Assistant | DX: J06.9 Acute upper respiratory infection, unspecified (principal) ==

== ENCOUNTER → 2022-01-09 | Outpatient (CLI) | payer MEDICARE, OTHER | LOC: M RAD 11:32 | PROVIDERS: ATTEND Nurse Practitioner Family | DX: M79.604 Pain in right leg (principal); M79.605 Pain in left leg ==

== ENCOUNTER → 2022-03-06 | Outpatient (REF) | payer MEDICARE, OTHER ==
[~2022-03-06] MED LIST changes: -ACET1TAB16 PO; +ACET300T48 PO
[2022-03-06 13:14] LABS: BLOOD UREA NITROGEN 12 MG/DL (7-18); CALCIUM LEVEL 8.6 MG/DL (8.5-10.1); CARBON DIOXIDE LEVEL 36 MEQ/L (21-32); CHLORIDE LEVEL 99 MEQ/L (98-107); CREATININE FOR GFR 1.05 MG/DL (0.70-1.30); GLOMERULAR FILTRATION RATE > 60.0 (>60); GLUCOSE, FASTING 124 MG/DL (70-100); SODIUM LEVEL 139 MEQ/L (136-145)
== END ==
LOC: M SFHCADAM 10:51
PROVIDERS: ATTEND Family Medicine
DX: E11.9 Type 2 diabetes mellitus without complications (principal)

== ENCOUNTER → 2022-07-03 | Outpatient (REF) | payer MEDICARE, OTHER ==
[~2022-07-03] MED LIST changes: +DOXY-350 PO; +LANTINJ4 SC
[2022-07-03 16:19] LABS: HEMATOCRIT 50.9 % (42.0-52.0); HEMOGLOBIN 17.1 g/dl (13.5-17.5); MEAN CORPUSCULAR HEMOGLOBIN 31.9 pg (27.0-33.0); MEAN CORPUSCULAR HGB CONC 33.6 g/dl (32.0-36.5); PLATELET COUNT, AUTOMATED 170 10^3/uL (150-450); RED BLOOD COUNT 5.36 10^6/uL (4.30-6.10); WHITE BLOOD COUNT 6.9 10^3/uL (4.0-10.0)
[2022-07-03 17:01] LABS: HEMOGLOBIN A1c 5.7 %
[2022-07-03 17:06] LABS: ALBUMIN 3.6 GM/DL (3.2-5.2); ALT/SGPT 51 U/L (12-78); BILIRUBIN,TOTAL 0.7 MG/DL (0.2-1.0); BLOOD UREA NITROGEN 9 MG/DL (7-18); CALCIUM LEVEL 9.3 MG/DL (8.5-10.1); CARBON DIOXIDE LEVEL 27 MEQ/L (21-32); CHLORIDE LEVEL 106 MEQ/L (98-107); CHOLESTEROL LEVEL 122 MG/DL (<200); CHOLESTEROL RISK RATIO 3.388 (<5); CREATININE FOR GFR 0.95 MG/DL (0.70-1.30); GLOMERULAR FILTRATION RATE > 60.0 (>60); GLUCOSE, FASTING 131 MG/DL (70-100); HDL CHOLESTEROL 36 MG/DL (>40); LDL CHOLESTEROL 62 MG/DL (<100); NON-HDL-C 86 MG/DL; POTASSIUM SERUM 4.5 MEQ/L (3.5-5.1); SODIUM LEVEL 138 MEQ/L (136-145); TOTAL PROTEIN 7.1 GM/DL (6.4-8.2); TRIGLYCERIDES LEVEL 120 MG/DL (<150)
== END ==
LOC: M SFHCADAM 14:36
PROVIDERS: ATTEND Family Medicine
DX: E11.40 Type 2 diabetes mellitus with diabetic neuropathy, unspecified (principal); E78.2 Mixed hyperlipidemia; K76.0 Fatty (change of) liver, not elsewhere classified; I48.21 Permanent atrial fibrillation

== ENCOUNTER → 2022-09-15 | Outpatient (REF) | payer MEDICARE, OTHER | LOC: M SFHCADAM 16:46 | PROVIDERS: ATTEND Physician Assistant | DX: J06.9 Acute upper respiratory infection, unspecified (principal) ==

== ENCOUNTER → 2022-09-22 | Outpatient (CLI) | payer MEDICARE, OTHER ==
[~2022-09-22] MED LIST changes: -DOXY-350 PO; +DOXY-444 PO
== END ==
LOC: M ADAMS 13:36
PROVIDERS: ATTEND Physician Assistant
DX: J20.9 Acute bronchitis, unspecified (principal)

== ENCOUNTER → 2022-10-11 | Outpatient (CLI) | payer MEDICARE, OTHER | LOC: M PLAIMG 14:02 | PROVIDERS: ATTEND Nurse Practitioner Family | DX: R91.8 Other nonspecific abnormal finding of lung field (principal) ==

== ENCOUNTER → 2022-11-07 | Outpatient (REF) | payer OTHER ==
[2022-11-07 17:21] LABS: MEAN CORPUSCULAR HEMOGLOBIN 30.7 pg (27.0-33.0); MEAN CORPUSCULAR HGB CONC 32.7 g/dl (32.0-36.5); PLATELET COUNT, AUTOMATED 143 10^3/uL (150-450); RED BLOOD COUNT 5.53 10^6/uL (4.30-6.10); WHITE BLOOD COUNT 6.4 10^3/uL (4.0-10.0)
[2022-11-07 17:46] LABS: CREATININE, URINE 102.5 MG/DL
[2022-11-07 17:48] LABS: MAU/CREAT RATIO 10.7 MCG/MG (0.0-30.0)
[2022-11-07 17:50] LABS: ALBUMIN 3.6 G/DL (3.2-5.2); ALKALINE PHOSPHATASE 105 U/L (46-116); ALT/SGPT 42 U/L (7.0-40); AST/SGOT 34 U/L (<34); BILIRUBIN,TOTAL 0.7 MG/DL (0.3-1.2); BLOOD UREA NITROGEN 10 MG/DL (9-23); CALCIUM LEVEL 8.9 MG/DL (8.5-10.1); CARBON DIOXIDE LEVEL 26 MMOL/L (20-31); CHLORIDE LEVEL 105 MMOL/L (98-107); CREATININE FOR GFR 0.79 MG/DL (0.70-1.30); GLOMERULAR FILTRATION RATE > 60.0 (>60); GLUCOSE, FASTING 106 MG/DL (60-100); POTASSIUM SERUM 5.3 MMOL/L (3.5-5.1); SODIUM LEVEL 138 MMOL/L (136-145); TOTAL PROTEIN 6.6 G/DL (5.7-8.2); VITAMIN B12 LEVEL 359 PG/ML (211-911)
[2022-11-07 17:55] LABS: FOLATE 12.38 NG/ML (>5.4)
[2022-11-07 18:45] LABS: HEMOGLOBIN A1c 6.1 % (4.0-6.0)
== END ==
LOC: M SFHCADAM 13:02
PROVIDERS: ATTEND Family Medicine
DX: I48.20 Chronic atrial fibrillation, unspecified (principal); E78.2 Mixed hyperlipidemia; K76.0 Fatty (change of) liver, not elsewhere classified; E11.40 Type 2 diabetes mellitus with diabetic neuropathy, unspecified; J06.9 Acute upper respiratory infection, unspecified

== ENCOUNTER → 2023-05-16 | Outpatient (REF) | payer OTHER ==
[~2023-05-16] MED LIST changes: +FLUT50SP17 NARES; -FLUTISP NARES; -ROSU20TA5 PO; +ROSU20TA61 PO
[2023-05-16 16:41] LABS: BLOOD UREA NITROGEN 7 MG/DL (9-23); CARBON DIOXIDE LEVEL 28 MMOL/L (20-31); CHLORIDE LEVEL 104 MMOL/L (98-107); CREATININE FOR GFR 0.74 MG/DL (0.70-1.30); GLOMERULAR FILTRATION RATE > 60.0 (>56); GLUCOSE, FASTING 98 MG/DL (60-100); POTASSIUM SERUM 4.9 MMOL/L (3.5-5.1); SODIUM LEVEL 134 MMOL/L (136-145)
[2023-05-16 16:48] LABS: HEMOGLOBIN A1c 6.2 % (4.0-6.0)
== END ==
LOC: M SFHCADAM 13:34
PROVIDERS: ATTEND Family Medicine
DX: E11.40 Type 2 diabetes mellitus with diabetic neuropathy, unspecified (principal)

== ENCOUNTER → 2023-09-03 | Outpatient (REF) | payer OTHER ==
[~2023-09-03] MED LIST changes: -CEFD300C41 PO; +CEFD300C42 PO; +DICL100G10 TOP; -DICL1GEL3 TOP; -GABA-283 PO; +GABA-284 PO; -PREG150C PO; +PREG150C2 PO
[2023-09-03 15:54] LABS: ALBUMIN 3.3 G/DL (3.2-5.2); ALKALINE PHOSPHATASE 103 U/L (46-116); ALT/SGPT 32 U/L (7.0-40); AST/SGOT 31 U/L (<34); BILIRUBIN,TOTAL 0.5 MG/DL (0.3-1.2); BLOOD UREA NITROGEN 7 MG/DL (9-23); CALCIUM LEVEL 8.4 MG/DL (8.5-10.1); CARBON DIOXIDE LEVEL 26 MMOL/L (20-31); CHLORIDE LEVEL 105 MMOL/L (98-107); CREATININE FOR GFR 0.72 MG/DL (0.70-1.30); GLOMERULAR FILTRATION RATE > 60.0 (>56); GLUCOSE, FASTING 95 MG/DL (60-100); POTASSIUM SERUM 4.7 MMOL/L (3.5-5.1); SODIUM LEVEL 137 MMOL/L (136-145); TOTAL PROTEIN 6.3 G/DL (5.7-8.2)
[2023-09-03 16:03] LABS: HEMOGLOBIN A1c 5.4 % (4.0-6.0)
== END ==
LOC: M SFHCADAM 09:46
PROVIDERS: ATTEND Family Medicine
DX: E11.40 Type 2 diabetes mellitus with diabetic neuropathy, unspecified (principal)

== ENCOUNTER → 2023-12-21 | Outpatient (REF) | payer OTHER ==
[~2023-12-21] MED LIST changes: +CEFD1CAP9 PO; -CEFD300C42 PO; -FLUT50SP17 NARES; +FLUTISP NARES
[2023-12-21 13:32] LABS: HEMATOCRIT 49.8 % (42.0-52.0); HEMOGLOBIN 17.2 g/dl (13.5-17.5); MEAN CORPUSCULAR HEMOGLOBIN 31.8 pg (27.0-33.0); MEAN CORPUSCULAR HGB CONC 34.5 g/dl (32.0-36.5); MEAN CORPUSCULAR VOLUME 92.1 fl (80.0-96.0); PLATELET COUNT, AUTOMATED 162 10^3/uL (150-450); RED BLOOD COUNT 5.41 10^6/uL (4.30-6.10); WHITE BLOOD COUNT 4.2 10^3/uL (4.0-10.0)
[2023-12-21 13:55] LABS: HEMOGLOBIN A1c 5.2 % (4.0-6.0)
[2023-12-21 14:04] LABS: CREATININE, URINE 31.8 MG/DL; MALB URINE SIEMENS < 3.0 MG/L; MAU/CREAT RATIO 9.4 MCG/MG (0.0-30.0)
[2023-12-21 14:08] LABS: FREE T4 1.11 NG/DL (0.89-1.76); THYROID STIMULATING HORMONE 2.276 uIU/ML (0.55-4.78)
[2023-12-21 14:12] LABS: ALBUMIN 3.7 G/DL (3.2-5.2); ALKALINE PHOSPHATASE 69 U/L (46-116); ALT/SGPT 33 U/L (7.0-40); AST/SGOT 26 U/L (<34); BILIRUBIN,TOTAL 0.5 MG/DL (0.3-1.2); BLOOD UREA NITROGEN < 5 MG/DL (9-23); CALCIUM LEVEL 8.6 MG/DL (8.5-10.1); CARBON DIOXIDE LEVEL 27 MMOL/L (20-31); CHLORIDE LEVEL 104 MMOL/L (98-107); CHOLESTEROL LEVEL 122 MG/DL (<200); CHOLESTEROL RISK RATIO 2.45 (<5); CREATININE FOR GFR 0.75 MG/DL (0.70-1.30); GLOMERULAR FILTRATION RATE > 60.0 (>56); GLUCOSE, FASTING 107 MG/DL (60-100); HDL CHOLESTEROL 49.6 MG/DL (>40); NON-HDL-C 72.4 MG/DL; POTASSIUM SERUM 4.4 MMOL/L (3.5-5.1); SODIUM LEVEL 138 MMOL/L (136-145); TOTAL PROTEIN 6.7 G/DL (5.7-8.2); TRIGLYCERIDES LEVEL 157 MG/DL (<150)
== END ==
LOC: M SFHCADAM 10:19
PROVIDERS: ATTEND Family Medicine
DX: E11.40 Type 2 diabetes mellitus with diabetic neuropathy, unspecified (principal); E78.2 Mixed hyperlipidemia

== ENCOUNTER 2024-02-25 23:30 | Emergency (ER) | payer OTHER ==
[~2024-02-25] VITALS: Ht 185.4 cm; Wt 136.0 kg
[~2024-02-25 23:30] MED LIST changes: +TIZA4CAP3 PO; -TIZA4CAP6 PO
[2024-02-25 23:36] VITALS: BP 167/97; TEMP 97.6; O2SAT 98
== END 2024-02-26 00:18 | disposition left against medical advice (07) ==
LOC: M ED 23:30
DX: Z53.21 Procedure and treatment not carried out due to patient leaving prior to being seen by health care provider (principal)

== ENCOUNTER → 2024-04-01 | Outpatient (REF) | payer OTHER ==
[~2024-04-01] MED LIST changes: +DOXY-323 PO; +DOXY-440 PO; -DOXY-443 PO; -DOXY-444 PO
[2024-04-01 14:26] LABS: BLOOD UREA NITROGEN 12 MG/DL (9-23); CALCIUM LEVEL 8.6 MG/DL (8.5-10.1); CARBON DIOXIDE LEVEL 28 MMOL/L (20-31); CHLORIDE LEVEL 106 MMOL/L (98-107); CREATININE FOR GFR 0.95 MG/DL (0.70-1.30); GLOMERULAR FILTRATION RATE > 60.0 (>56); GLUCOSE, FASTING 105 MG/DL (60-100); POTASSIUM SERUM 4.9 MMOL/L (3.5-5.1); SODIUM LEVEL 137 MMOL/L (136-145)
[2024-04-01 14:53] LABS: HEMOGLOBIN A1c 5.6 % (4.0-6.0)
== END ==
LOC: M SFHCADAM 09:44
PROVIDERS: ATTEND Family Medicine
DX: E11.40 Type 2 diabetes mellitus with diabetic neuropathy, unspecified (principal)

== ENCOUNTER 2024-04-23 13:01 | Emergency (ER) | payer MEDICARE, OTHER ==
[~2024-04-23] VITALS: Ht 182.9 cm; Wt 132.3 kg
[2024-04-23] MEDS ORDERED: XARE20TA (13:18)
[2024-04-23 15:03] LABS: BASO # 0.1 10^3/uL (0.0-0.2); BASO % 0.9 % (0.0-1.0); EOS # 0.1 10^3/uL (0.0-0.5); EOS % 1.2 % (0.0-3.0); HEMATOCRIT 51.9 % (42.0-52.0); HEMOGLOBIN 17.5 g/dl (13.5-17.5); LYMPH # 1.2 10^3/uL (1.5-5.0); LYMPH % 21.4 % (24.0-44.0); MEAN CORPUSCULAR HEMOGLOBIN 31.6 pg (27.0-33.0); MEAN CORPUSCULAR HGB CONC 33.7 g/dl (32.0-36.5); MEAN CORPUSCULAR VOLUME 93.7 fl (80.0-96.0); MONO # 0.7 10^3/uL (0.0-0.8); NEUTROPHILS # 3.6 10^3/uL (1.5-8.5); NEUTROPHILS % 64.3 % (36.0-66.0); PLATELET COUNT, AUTOMATED 152 10^3/uL (150-450); RED BLOOD COUNT 5.54 10^6/uL (4.30-6.10); WHITE BLOOD COUNT 5.7 10^3/uL (4.0-10.0)
[2024-04-23 15:25] LABS: LIPASE 20 U/L (12-53)
[2024-04-23 15:27] LABS: ALBUMIN 3.8 G/DL (3.2-5.2); ALKALINE PHOSPHATASE 88 U/L (46-116); ALT/SGPT 30 U/L (7.0-40); AST/SGOT 32 U/L (<34); BILIRUBIN,DIRECT 0.4 MG/DL (<0.4); BILIRUBIN,TOTAL 1.1 MG/DL (0.3-1.2); BLOOD UREA NITROGEN 7 MG/DL (9-23); CALCIUM LEVEL 9.4 MG/DL (8.5-10.1); CARBON DIOXIDE LEVEL 27 MMOL/L (20-31); CHLORIDE LEVEL 104 MMOL/L (98-107); CREATININE FOR GFR 0.97 MG/DL (0.70-1.30); GLOMERULAR FILTRATION RATE > 60.0 (>56); GLUCOSE, FASTING 116 MG/DL (60-100); POTASSIUM SERUM 4.6 MMOL/L (3.5-5.1); SODIUM LEVEL 136 MMOL/L (136-145); TOTAL PROTEIN 7.2 G/DL (5.7-8.2)
[2024-04-23] MEDS ORDERED: ISOVUE-370 76% 100ML VIAL As Ordered ONE (15:49)
[2024-04-23] MEDS: NS 1,000 ML IV ONE (16:23)
[2024-04-23 17:08] LABS: CK-MB VALUE MASS 2.6 NG/ML (<3.6)
[2024-04-23 17:16] LABS: CPK CREATINE PHOSPHOKINASE 134 U/L (46-171); MB/CK RELATIVE INDEX 1.94 (< OR =4)
[2024-04-23 19:12] VITALS: BP 107/69; TEMP 97; O2SAT 100
== END 2024-04-23 19:19 | disposition home or self-care (01) ==
LOC: M ED 13:01
DX: A09 Infectious gastroenteritis and colitis, unspecified (principal); R19.7 Diarrhea, unspecified; I48.91 Unspecified atrial fibrillation; I25.2 Old myocardial infarction; F17.210 Nicotine dependence, cigarettes, uncomplicated; Z88.8 Allergy status to other drugs, medicaments and biological substances; Z79.1 Long term (current) use of non-steroidal anti-inflammatories (NSAID); Z79.51 Long term (current) use of inhaled steroids; Z79.899 Other long term (current) drug therapy
CPT/HCPCS: 74177; 80048; 80076; 82550; 82553; 83690; 84484; 85025; 87507; 93005; 96360; 96361; 99284; Q9967

== ENCOUNTER → 2024-05-07 | Outpatient (CLI) | payer MEDICARE, OTHER ==
[~2024-05-07] MED LIST changes: +XARE20TA
== END ==
LOC: M ADAMS 09:57
PROVIDERS: ATTEND Family Medicine
DX: M25.562 Pain in left knee (principal)

== ENCOUNTER → 2024-07-24 | Outpatient (REF) | payer OTHER ==
[2024-07-24 14:54] LABS: BLOOD UREA NITROGEN 8 MG/DL (9-23); CALCIUM LEVEL 9.3 MG/DL (8.5-10.1); CARBON DIOXIDE LEVEL 25 MMOL/L (20-31); CHLORIDE LEVEL 107 MMOL/L (98-107); CREATININE FOR GFR 0.84 MG/DL (0.70-1.30); GLOMERULAR FILTRATION RATE > 60.0 (>56); GLUCOSE, FASTING 95 MG/DL (60-100); POTASSIUM SERUM 4.5 MMOL/L (3.5-5.1); SODIUM LEVEL 138 MMOL/L (136-145)
[2024-07-24 14:59] LABS: HEMOGLOBIN A1c 5.6 % (4.0-6.0)
== END ==
LOC: M SFHCADAM 10:55
PROVIDERS: ATTEND Family Medicine
DX: E11.40 Type 2 diabetes mellitus with diabetic neuropathy, unspecified (principal)

== ENCOUNTER → 2024-08-18 | Outpatient (CLI) | payer MEDICARE, OTHER | LOC: M PLAIMG 10:36 | PROVIDERS: ATTEND Physician Assistant | DX: M51.16 Intervertebral disc disorders with radiculopathy, lumbar region (principal) ==

== ENCOUNTER → 2024-10-15 | Outpatient (CLI) | payer MEDICARE, OTHER ==
[~2024-10-15] MED LIST changes: -DOXY-323 PO; +DOXY-441 PO; +GABA-1172 PO; -GABA-282 PO; -ROSU20TA61 PO; +ROSU20TA86 PO
== END ==
LOC: M RAD 12:39
PROVIDERS: ATTEND Physician Assistant Medical
DX: S90.851A Superficial foreign body, right foot, initial encounter (principal); M79.671 Pain in right foot; R60.0 Localized edema

== ENCOUNTER → 2024-11-06 | Outpatient (REF) | payer OTHER ==
[2024-11-06 17:57] LABS: HEMOGLOBIN A1c 5.7 % (4.0-6.0)
[2024-11-06 18:02] LABS: BLOOD UREA NITROGEN 13 MG/DL (9-23); CALCIUM LEVEL 9.4 MG/DL (8.5-10.1); CARBON DIOXIDE LEVEL 29 MMOL/L (20-31); CHLORIDE LEVEL 102 MMOL/L (98-107); CREATININE FOR GFR 0.89 MG/DL (0.70-1.30); GLOMERULAR FILTRATION RATE > 60.0 (>56); GLUCOSE, FASTING 127 MG/DL (60-100); POTASSIUM SERUM 5.2 MMOL/L (3.5-5.1); SODIUM LEVEL 140 MMOL/L (136-145)
== END ==
LOC: M SFHCADAM 11:33
PROVIDERS: ATTEND Physician Assistant
DX: E11.40 Type 2 diabetes mellitus with diabetic neuropathy, unspecified (principal)

== ENCOUNTER → 2024-11-10 | Outpatient (CLI) | payer MEDICARE, OTHER | LOC: M RAD 07:39 | PROVIDERS: ATTEND Nurse Practitioner Family | DX: Z12.2 Encounter for screening for malignant neoplasm of respiratory organs (principal); Z87.891 Personal history of nicotine dependence ==

== ENCOUNTER → 2025-01-07 | Outpatient (REF) | payer MEDICARE, OTHER ==
[~2025-01-07] MED LIST changes: +CARI-555 PO; -CARI1TAB7 PO
[2025-01-07 18:36] LABS: HEMATOCRIT 51.2 % (42.0-52.0); HEMOGLOBIN 16.9 g/dl (13.5-17.5); MEAN CORPUSCULAR HEMOGLOBIN 31.3 pg (27.0-33.0); MEAN CORPUSCULAR VOLUME 94.8 fl (80.0-96.0); PLATELET COUNT, AUTOMATED 127 10^3/uL (150-450); WHITE BLOOD COUNT 4.8 10^3/uL (4.0-10.0)
[2025-01-07 19:05] LABS: FOLATE 12.35 NG/ML (>5.4); THYROID STIMULATING HORMONE 1.588 uIU/ML (0.55-4.78)
[2025-01-07 19:06] LABS: VITAMIN B12 LEVEL 345 PG/ML (211-911)
[2025-01-07 19:08] LABS: ALBUMIN 3.7 G/DL (3.2-5.2); ALKALINE PHOSPHATASE 79 U/L (40-129); ALT/SGPT 35 U/L (7.0-40); AST/SGOT 27 U/L (<34); BILIRUBIN,TOTAL 0.9 MG/DL (0.3-1.2); BLOOD UREA NITROGEN < 5 MG/DL (9-23); CALCIUM LEVEL 9.4 MG/DL (8.5-10.1); CARBON DIOXIDE LEVEL 29 MMOL/L (20-31); CHLORIDE LEVEL 105 MMOL/L (98-107); CHOLESTEROL LEVEL 140 MG/DL (<200); CHOLESTEROL RISK RATIO 2.76 (<5); CREATININE FOR GFR 0.85 MG/DL (0.70-1.30); GLOMERULAR FILTRATION RATE > 60.0 (>56); GLUCOSE, FASTING 96 MG/DL (60-100); HDL CHOLESTEROL 50.7 MG/DL (>40); LDL CHOLESTEROL 68.9 MG/DL (<100); NON-HDL-C 89.3 MG/DL; POTASSIUM SERUM 4.6 MMOL/L (3.5-5.1); SODIUM LEVEL 141 MMOL/L (136-145); TOTAL PROTEIN 7.1 G/DL (5.7-8.2); TRIGLYCERIDES LEVEL 102 MG/DL (<150)
[2025-01-07 19:23] LABS: HEMOGLOBIN A1c 5.8 % (4.0-6.0)
[2025-01-12 16:11] LABS: FREE KAPPA LIGHT CHAINS SERUM 28.9 mg/L (3.3-19.4); FREE LAMBDA LIGHT CHAINS SERUM 22.9 mg/L (5.7-26.3); KAPPA/LAMBDA RATIO SERUM 1.26 (0.26-1.65)
== END ==
LOC: M SFHCADAM 11:06
PROVIDERS: ATTEND Family Medicine
DX: E11.40 Type 2 diabetes mellitus with diabetic neuropathy, unspecified (principal); K76.0 Fatty (change of) liver, not elsewhere classified; G57.93 Unspecified mononeuropathy of bilateral lower limbs

== ENCOUNTER → 2025-06-11 | Outpatient (CLI) | payer MEDICARE, OTHER ==
[~2025-06-11] MED LIST changes: -AMIO200T49 PO; +AMIO200T54 PO
== END ==
LOC: M PLAIMG 07:16
PROVIDERS: ATTEND Physician Assistant
DX: M48.061 Spinal stenosis, lumbar region without neurogenic claudication (principal); M47.14 Other spondylosis with myelopathy, thoracic region; M51.26 Other intervertebral disc displacement, lumbar region

== ENCOUNTER → 2025-07-24 | Outpatient (REF) | payer MEDICARE ==
[~2025-07-24] MED LIST changes: -IBUP-1022 PO; +IBUP600T42 PO
[2025-07-24 18:53] LABS: ALT/SGPT 30.0 U/L (7.0-40); AST/SGOT 23.0 U/L (<34); CALCIUM LEVEL 9.1 MG/DL (8.5-10.1); CARBON DIOXIDE LEVEL 28.0 MMOL/L (20-31); CHLORIDE LEVEL 107.0 MMOL/L (98-107); CREATININE FOR GFR 1.03 MG/DL (0.70-1.30); FREE T4 0.98 NG/DL (0.89-1.76); GLOMERULAR FILTRATION RATE 87.4 (>56); POTASSIUM SERUM 5.0 MMOL/L (3.5-5.1); SODIUM LEVEL 141.0 MMOL/L (136-145)
[2025-07-24 18:55] LABS: PLATELET COUNT, AUTOMATED 154 10^3/uL (150-450)
[2025-07-24 19:23] LABS: ESTIMATED AVERAGE GLUCOSE 114.0 MG/DL (60-110)
== END ==
LOC: M SFHCADAM 13:33
PROVIDERS: ATTEND Family Medicine
DX: J44.9 Chronic obstructive pulmonary disease, unspecified (principal); E11.40 Type 2 diabetes mellitus with diabetic neuropathy, unspecified; E78.2 Mixed hyperlipidemia